=== PATIENT | female | born 1970 | race Two or more races ===

== ENCOUNTER → 2016-10-10 | Outpatient (CLI) | payer OTHER ==
[~2016-10-10] MED LIST: DICL75TA PO; MAPA500T13 PO
[2016-10-10 12:14] LABS: AUTOMATED NEUTROPHIL # 3.9 TH/MM3 (1.8-7.7); BASOPHIL % 0.4 % (0.0-2.0); EOSINOPHIL # 0.2 TH/MM3 (0-0.4); EOSINOPHIL % 2.2 % (0.0-4.0); HEMATOCRIT 36.6 % (35.0-46.0); HEMO FLAGS DIFF FINAL; LYMPH % 38.5 % (9.0-44.0); LYMPHOCYTE # 2.9 TH/MM3 (1.0-4.8); MEAN CELL VOLUME 85.3 FL (80.0-100.0); MEAN CORPUSCULAR HEMOGLOBIN 29.3 PG (27.0-34.0); MEAN CORPUSCULAR HGB CONC 34.3 % (32.0-36.0); MONO % 5.5 % (0.0-8.0); NEUT % 53.4 % (16.0-70.0); PLATELET COUNT 292 TH/MM3 (150-450); RED BLOOD COUNT 4.29 MIL/MM3 (4.00-5.30); RED CELL DISTRIBUTION WIDTH 12.3 % (11.6-17.2); WHITE BLOOD COUNT 7.4 TH/MM3 (4.0-11.0)
== END ==
LOC: PHPRE 11:24
PROVIDERS: ATTEND Orthopaedic Surgery
DX: Z01.812 Encounter for preprocedural laboratory examination (principal); S83.206A Unspecified tear of unspecified meniscus, current injury, right knee, initial encounter; X58.XXXA Exposure to other specified factors, initial encounter
CPT/HCPCS: 36415; 85025

== ENCOUNTER → 2016-10-24 | Day surgery (SDC) | payer OTHER ==
[~2016-10-24] VITALS: Ht 152.4 cm; Wt 76.5 kg
[~2016-10-24] MED LIST changes: +ACETAMINOPHEN/HYDROcodone 325 MG/5 MG TAB PO PRN; +BUPIVACAINE/EPINEPHRINE 0.25% PF 30 ML VIAL ONE; +CHLORHEXIDINE GLUCONATE 2 % 1 PACK (2 CLOTHS) TOPICAL PRN; +CHLORHEXIDINE GLUCONATE 4% SOLN 120 ML BTL TOPICAL SCH; +INSULIN HUMAN REGULAR 1,000 UNITS/10 ML VIAL SQ PRN; +KETOROLAC TROMETHAMINE 30 MG/ML (IVP) VIAL IM PRN; +KETOROLAC TROMETHAMINE 60 MG/2 ML (IM) VIAL IM ONE; +LACTATED RINGER'S 1000 ML IV PRN; +MEPERIDINE HCL 25 MG/ML VIAL ONE; +METOPROLOL TARTRATE 25 MG TAB PO PRN; +MIDAZOLAM HCL 2 MG/2 ML VIAL ONE; +ONDANSETRON HCL 4 MG/2 ML VIAL IV PUSH ONE; +ONDANSETRON HCL 4 MG/2 ML VIAL IV PUSH PRN; +POVIDONE IODINE 5% (ANTISEPSIS KIT) 4 APPLICATIONS EACH NARE PRN; +PROPOFOL 200 MG/20 ML AMP IV ONE; +SODIUM CHLORID 0.9% 500 ML IV PRN; +TRIAMCINOLONE ACETONIDE 40 MG/ML VIAL ONE
[2016-10-24 10:20] VITALS: BP 165/92; PULSE 63; RESP 18; TEMP 98; O2SAT 98
[2016-10-24 14:45] VITALS: BP 149/78; PULSE 68; RESP 16; TEMP 98.1; O2SAT 95
--- NOTE | 2016-10-24 21:30 | MP ---
cc: RACHEL NELSON MD DATE OF SURGERY 10/24/[address] Sharyn Nelson PREOPERATIVE DIAGNOSIS Pain right knee joint. POSTOPERATIVE DIAGNOSIS 1. Tear anterior horn lateral meniscus. 2. Chondromalacia patellofemoral joint. 3. Synovitis. PROCEDURE 1. Arthroscopic partial synovectomy. 2. Subtotal medial meniscectomy. 3. Chondroplasty patellofemoral joint. PROCEDURE IN DETAIL The patient was placed on the operating table in the supine position. Adequate general anesthesia was administered by the anesthesiologist. The patient's right knee was prepped and draped in the usual sterile fashion. A time-out was called and the patient's name, procedure and location were fully confirmed. An Esmarch bandage was used to exsanguinate the right lower extremity and a pneumatic tourniquet was inflated at the level of the proximal thigh to 300. An anterolateral portal was used for introduction of the cannula and the joint was distended with lactated Ringer's solution. A systematic examination of the knee joint revealed severe synovitis of the suprapatellar pouch extending to the patellofemoral joint and intercondylar fossa. The articular surface also showed grade one to two chondromalacia. The anterior cruciate ligament was frayed but intact. The medial compartment was unremarkable. The lateral compartment did show longitudinal tearing in the area of the anterior horn of the lateral meniscus. A resector was placed through an anteromedial portal and a partial synovectomy performed in all three compartments. A chondroplasty of the patella was also carried out with the same instrument. A subtotal lateral meniscectomy was performed also with the resector. Minimal chondroplasty was required for the articular surfaces of the lateral compartment. The medial compartment revealed some synovitis which was excised, but the medial meniscus was entirely intact. The instruments were removed after thorough irrigation and aspiration of the joint. The two stab wounds were closed with 3-0 nylon. An intra-articular injection of a total of 20 mL of 0.25% Marcaine with epinephrine and 1 mL of Kenalog was instilled through the lateral portal. Xeroform gauze was applied over both wounds and a bulky compression dressing applied around the knee joint. The tourniquet was deflated after 16 minutes. Sponge count, needle count and instrument counts were reported to be correct x2. The estimated blood loss was nil. The patient tolerated the procedure well and went to recovery room in satisfactory condition. MD ANAM Damon/ /12:29 PM /9:26 PM
== END | disposition home or self-care (01) ==
LOC: PHSDC 09:58
PROVIDERS: ATTEND Orthopaedic Surgery
DX: S83.281A Other tear of lateral meniscus, current injury, right knee, initial encounter (principal); M22.41 Chondromalacia patellae, right knee; M65.9 Synovitis and tenosynovitis, unspecified; W17.2XXA Fall into hole, initial encounter; Y93.89 Activity, other specified; Y92.69 Other specified industrial and construction area as the place of occurrence of the external cause; Y99.0 Civilian activity done for income or pay
CPT/HCPCS: 01400; 29876; 29881; E0113; J1885; J2175; J2250; J2405; J3010; J3301; J7120

== ENCOUNTER 2016-11-28 19:17 | Inpatient (IN) | payer OTHER ==
[~2016-11-28 19:17] MED LIST changes: -ACETAMINOPHEN/HYDROcodone 325 MG/5 MG TAB PO PRN; -BUPIVACAINE/EPINEPHRINE 0.25% PF 30 ML VIAL ONE; -CHLORHEXIDINE GLUCONATE 2 % 1 PACK (2 CLOTHS) TOPICAL PRN; -CHLORHEXIDINE GLUCONATE 4% SOLN 120 ML BTL TOPICAL SCH; -INSULIN HUMAN REGULAR 1,000 UNITS/10 ML VIAL SQ PRN; -KETOROLAC TROMETHAMINE 30 MG/ML (IVP) VIAL IM PRN; -KETOROLAC TROMETHAMINE 60 MG/2 ML (IM) VIAL IM ONE; -LACTATED RINGER'S 1000 ML IV PRN; -MAPA500T13 PO; -MEPERIDINE HCL 25 MG/ML VIAL ONE; -METOPROLOL TARTRATE 25 MG TAB PO PRN; -MIDAZOLAM HCL 2 MG/2 ML VIAL ONE; -ONDANSETRON HCL 4 MG/2 ML VIAL IV PUSH ONE; -ONDANSETRON HCL 4 MG/2 ML VIAL IV PUSH PRN; -POVIDONE IODINE 5% (ANTISEPSIS KIT) 4 APPLICATIONS EACH NARE PRN; -PROPOFOL 200 MG/20 ML AMP IV ONE; -SODIUM CHLORID 0.9% 500 ML IV PRN; -TRIAMCINOLONE ACETONIDE 40 MG/ML VIAL ONE
[2016-11-28 19:22] VITALS: BP 179/89; PULSE 75; RESP 18; TEMP 98; O2SAT 99
[2016-11-28] MEDS ORDERED: FURO1TAB60 PO (19:33)
[2016-11-28] MEDS ORDERED: SODIUM CHLORIDE 0.9% FLUSH 10 ML FLUSH IVF PRN (20:00)
[2016-11-28 20:07] LABS: BLOOD, URINE LARGE (NEG); GLUCOSE,URINE NEG (NEG); KETONE, URINE NEG (NEG); NITRITE,URINE NEG (NEG)
[2016-11-28 20:09] LABS: BASOPHIL % 0.5 % (0.0-2.0); EOSINOPHIL # 0.2 TH/MM3 (0-0.4); EOSINOPHIL % 2.7 % (0.0-4.0); HEMATOCRIT 35.3 % (35.0-46.0); HEMO FLAGS DIFF FINAL; LYMPH % 35.9 % (9.0-44.0); LYMPHOCYTE # 2.7 TH/MM3 (1.0-4.8); MEAN CORPUSCULAR HEMOGLOBIN 29.8 PG (27.0-34.0); MEAN CORPUSCULAR HGB CONC 34.7 % (32.0-36.0); NEUT % 53.9 % (16.0-70.0); PLATELET COUNT 268 TH/MM3 (150-450); RED CELL DISTRIBUTION WIDTH 12.8 % (11.6-17.2); WHITE BLOOD COUNT 7.4 TH/MM3 (4.0-11.0)
--- NOTE | 2016-11-28 20:09 | PD ---
HPI Chief Complaint: Abnormal Results Time Seen by Provider: 19:49 Travel History International Travel<30 days: No Contact w/Intl Traveler<30days: No Traveled to known affect area: No History of Present Illness HPI The patient is a 46-year-old female who had surgery by Dr. Henderson at this hospital on the of last month. The patient developed subsequent swelling in her right foot 3 days postop. She had a duplex scan of the right lower extremity with were consistent with extensive DVT from the area of the right groin down to below the knee. The patient is not short of breath now but has some slight chest pain on the left anterior chest below the left breast. She denies any fever or hemoptysis. She states there is no possibility of . The patient was not put on any anticoagulants, the surgery was an arthroscopy with meniscectomy. The patient states she has no contraindication to anticoagulants. She states this morning she had a tiny bit of blood in her stool but this cleared up. She has never had an intracranial bleed or stroke. She does not have a history of hypertension but her pressure is elevated here. PFSH Past Medical History Asthma: No Autoimmune Disease: No Cancer: No Cardiovascular Problems: No COPD: No Diabetes: No Endocrine: No Genitourinary: No Hepatitis: No Hiatal Hernia: No Immune Disorder: No Musculoskeletal: Yes (ARTHRITIS RIGHT KNEE AND TORN MENISCUS) Neurologic: No Psychiatric: No Reproductive: No Respiratory: No Thyroid Disease: No ?: Not Past Surgical History Abdominal Surgery: Yes (CHOLECYSTECTOMY) AICD: No Cardiac Surgery: No Ear Surgery: No Endocrine Surgery: No Eye Surgery: No Genitourinary Surgery: No Gynecologic Surgery: No Joint Replacement: No Oral Surgery: No Pacemaker: No Thoracic Surgery: No Other Surgery: Yes Social History Alcohol Use: No Tobacco Use: No Substance Use: No Allergies-Medications (Allergen,Severity, Reaction): Coded Allergies: No Known Allergies (Verified , 11/28/16) Reported Meds & Prescriptions Reported Meds & Active Scripts Active Reported Lasix (Furosemide) 40 Mg Tab 40 Mg PO DAILY Diclofenac Sodium DR (Diclofenac Sodium) 75 Mg Tabdr 75 Mg PO DAILY Review of Systems Except as stated in HPI: all other systems reviewed are Neg Physical Exam Narrative GENERAL: The patient is obese, alert, oriented 3 in no apparent distress. Specifically, she is in no respiratory distress. Her vital signs show blood pressure 179/89 but are otherwise normal. SKIN: Focused skin assessment warm/dry. HEAD: Atraumatic. Normocephalic. EYES: Pupils equal and round. No scleral icterus. No injection or drainage. ENT: No nasal bleeding or discharge. Mucous membranes pink and moist. NECK: Trachea midline. No JVD. CARDIOVASCULAR: Regular rate and rhythm. No murmur appreciated. RESPIRATORY: No accessory muscle use. Clear to auscultation. Breath sounds equal bilaterally. I can completely reproduce the patient's pain by pressing on the anterior chest wall just below the left breast where she perceives her pain. GASTROINTESTINAL: Abdomen soft, non-tender, nondistended. Hepatic and splenic margins not palpable. MUSCULOSKELETAL: No obvious deformities. No clubbing. No cyanosis. No edema. NEUROLOGICAL: Awake and alert. No obvious cranial nerve deficits. Motor grossly within normal limits. Normal speech. PSYCHIATRIC: Appropriate mood and affect; insight and judgment normal. Data Data Last Documented VS Vital Signs Date Time Temp Pulse Resp B/P Pulse Ox O2 Delivery O2 Flow Rate FiO2 11/28/16 20:25 85 16 177/82 99 Room Air 11/28/16 19:22 98.0 Orders Complete Blood Count With Diff (11/28/16 19:49) Comprehensive Metabolic Panel (11/28/16 19:49) Act Partial Throm Time (Ptt) (11/28/16 19:49) Prothrombin Time / Inr (Pt) (11/28/16 19:49) Urinalysis - C+S If Indicated (11/28/16 19:49) Iv Access Insert/Monitor (11/28/16 19:49) Ecg Monitoring (11/28/16 19:49) Oximetry (11/28/16 19:49) Oxygen Administration (11/28/16 19:49) Chest, Pa & Lat (11/28/16 19:49) Ct Pulmonary Angiogram (11/28/16 19:49) Sodium Chloride 0.9% Flush (Ns Flush) (11/28/16 20:00) Enalaprilat Inj (Vasotec Inj) (11/28/16 20:15) Urine Culture (11/28/16 20:00) Iohexol 350 Inj (Omnipaque 350 Inj) (11/28/16 20:37) Enoxaparin Inj (Lovenox Inj) (11/28/16 20:45) Enoxaparin Inj (Lovenox Inj) (11/29/16 09:00) Ceftriaxone Inj (Rocephin Inj) (11/28/16 21:00) Admit To Inpatient (11/28/16 ) Vital Signs (Adult) Q4H (11/28/16 20:51) Activity Bed Rest (11/28/16 20:51) Scoop Driver / Telemetry .CONTINUOUS (11/28/16 20:51) Intake + Output DAYRON.QSHIFT (11/28/16 20:51) Diet Regular Basic (11/29/16 Breakfast) Sodium Chloride 0.9% Flush (Ns Flush) (11/28/16 21:00) Sodium Chloride 0.9% Flush (Ns Flush) (11/28/16 21:00) Ondansetron Inj (Zofran Inj) (11/28/16 21:00) Comprehensive Metabolic Panel (11/29/16 06:00) Complete Blood Count With Diff (11/29/16 06:00) Troponin I (11/29/16 00:00) Troponin I (11/29/16 06:00) Acetaminophen (Tylenol) (11/28/16 21:00) Acetamin-Hydrocod 325-5 Mg (Aspen 5-325 (11/28/16 21:00) Morphine Inj (Morphine Inj) (11/28/16 21:00) Docusate Sodium-Senna (Azucena-Colace) (11/28/16 21:00) Magnesium Hydroxide Liq (Milk Of Magnesi (11/28/16 21:00) Sennosides (Senokot) (11/28/16 21:00) Bisacodyl Supp (Dulcolax Supp) (11/28/16 21:00) Lactulose Liq (Lactulose Liq) (11/28/16 21:00) Inpatient Certification (11/28/16 ) Labs Laboratory Tests Test 11/28/16 20:00 White Blood Count 7.4 TH/MM3 Red Blood Count 4.10 MIL/MM3 Hemoglobin 12.2 GM/DL Hematocrit 35.3 % Mean Corpuscular Volume 86.0 FL Mean Corpuscular Hemoglobin 29.8 PG Mean Corpuscular Hemoglobin 34.7 % Concent Red Cell Distribution Width 12.8 % Platelet Count 268 TH/MM3 Mean Platelet Volume 8.4 FL Neutrophils (%) (Auto) 53.9 % Lymphocytes (%) (Auto) 35.9 % Monocytes (%) (Auto) 7.0 % Eosinophils (%) (Auto) 2.7 % Basophils (%) (Auto) 0.5 % Neutrophils # (Auto) 4.0 TH/MM3 Lymphocytes # (Auto) 2.7 TH/MM3 Monocytes # (Auto) 0.5 TH/MM3 Eosinophils # (Auto) 0.2 TH/MM3 Basophils # (Auto) 0.0 TH/MM3 CBC Comment DIFF FINAL Differential Comment Prothrombin Time 10.6 SEC Prothromb Time International 1.0 RATIO Ratio Activated Partial 25.9 SEC Thromboplast Time Urine Color YELLOW Urine Turbidity CLEAR Urine pH 6.0 Urine Specific [place] 1.010 Urine Protein NEG mg/dL Urine Glucose (UA) NEG mg/dL Urine Ketones NEG mg/dL Urine Occult Blood LARGE Urine Nitrite NEG Urine Bilirubin NEG Urine Leukocyte Esterase TRACE Urine WBC 9-14 /hpf Urine WBC Clumps FEW Urine Squamous Epithelial 0-5 /hpf Cells Urine Bacteria FEW /hpf Urine Mucus FEW /lpf Microscopic Urinalysis Comment CULTURE INDICATED Sodium Level 139 MEQ/L Potassium Level 3.0 MEQ/L Chloride Level 104 MEQ/L Carbon Dioxide Level 27.6 MEQ/L Anion Gap 7 MEQ/L Blood Urea Nitrogen 14 MG/DL Creatinine 0.67 MG/DL Estimat Glomerular Filtration 95 ML/MIN Rate Random Glucose 122 MG/DL Calcium Level 8.2 MG/DL Total Bilirubin 0.2 MG/DL Aspartate Amino Transf 13 U/L (AST/SGOT) Alanine Aminotransferase 23 U/L (ALT/SGPT) Alkaline Phosphatase 111 U/L Total Protein 7.3 GM/DL Albumin 3.2 GM/DL [facility] Medical Decision Making Medical Screen Exam Complete: Yes Emergency Medical Condition: Yes Medical Record Reviewed: Yes Differential Diagnosis Deep vein thrombosis, ruptured popliteal cyst, cellulitis, pulmonary embolism Narrative Course The patient has deep vein thrombosis of the right leg. There is no clinical evidence at this time of pulmonary embolism or cellulitis. Physician Communication Physician Communication I discussed the patient with Dr. King, the patient will be admitted to her. Diagnosis Primary Impression: Deep vein thrombosis of right lower extremity Admitting Information Admitting Physician Requests: Admit Rene Rodriguez MD Nov 28, 2016 20:09
[2016-11-28 20:10] LABS: URINE COLOR YELLOW (YELLW/STRAW)
[2016-11-28 20:11] LABS: MUCUS URINE FEW /lpf (OCC)
[2016-11-28 20:12] LABS: BACTERIA, URINE FEW /hpf; COMMENT (UR) CULTURE INDICATED; CULTURE IF INDICATED CULTURE INDICATED; SQUAMOUS EPITHELIAL CELL URINE 0-5 /hpf (0-5)
[2016-11-28 20:14] LABS: CHLORIDE 104 MEQ/L (98-107); SODIUM (NA) 139 MEQ/L (136-145)
[2016-11-28] MEDS ORDERED: ENALAPRILAT 2.5 MG/2 ML VIAL IV PUSH ONE (20:15)
[2016-11-28 20:17] LABS: ANION GAP 7 MEQ/L (5-15); BICARBONATE 27.6 MEQ/L (21.0-32.0)
[2016-11-28 20:18] LABS: BLOOD UREA NITROGEN 14 MG/DL (7-18)
--- NOTE | 2016-11-28 20:19 | RADRPT ---
EXAM DATE/TIME: 11/28/2016 19:54 [facility] COMPARISON: No previous studies available for comparison. INDICATIONS : Chest pain. MEDICAL HISTORY : None. SURGICAL HISTORY : Right knee surgery ENCOUNTER: Initial ACUITY: 1 day PAIN SCORE: 6/10 LOCATION: Bilateral chest FINDINGS: PA and lateral views of the chest demonstrate the lungs to be symmetrically aerated without evidence of mass, infiltrate or effusion. The cardiomediastinal contours are unremarkable. Osseous structure s are intact. CONCLUSION: No evidence of acute cardiopulmonary disease. Surya Moss MD on November 28, 2016 at 20:17 Board Certified Radiologist. This report was verified electronically.
[2016-11-28 20:20] LABS: APTT (PATIENT) 25.9 SEC (24.3-30.1); PROTHROMBIN TIME - PATIENT 10.6 SEC (9.8-11.6)
[2016-11-28 20:21] LABS: ALT (GPT) 23 U/L (10-53); AST (GOT) 13 U/L (15-37); GLOMERULAR FILTRATION RATE 95 ML/MIN (>89)
[2016-11-28 20:22] LABS: TOTAL BILIRUBIN ADULT 0.2 MG/DL (0.2-1.0)
[2016-11-28 20:24] LABS: ALKALINE PHOSPHATASE 111 U/L (45-117)
[2016-11-28 20:25] VITALS: BP 177/82; PULSE 85; RESP 16; O2SAT 99
[2016-11-28] MEDS ORDERED: IOHEXOL 350 MG/ML 10 ML VIAL (for RAD DIAG) IV ONE (20:37)
[2016-11-28] MEDS ORDERED: ENOXAPARIN SODIUM 80 MG/0.8 ML SYRINGE SQ ONE (20:45)
[2016-11-28] MEDS ORDERED: SENNOSIDES 8.6 MG TAB PO PRN (21:00)
[2016-11-28] MEDS ORDERED: MAGNESIUM HYDROXIDE SUSP 30 ML CUP PO PRN (21:00)
[2016-11-28] MEDS ORDERED: ACETAMINOPHEN/HYDROcodone 325 MG/5 MG TAB PO PRN (21:00)
[2016-11-28] MEDS ORDERED: ONDANSETRON HCL 4 MG/2 ML VIAL IVP PRN (21:00)
[2016-11-28] MEDS ORDERED: MORPHINE SULFATE 4 MG/ML INJ IV PRN (21:00)
[2016-11-28] MEDS ORDERED: BISACODYL 10 MG SUPP RECTAL PRN (21:00)
[2016-11-28] MEDS ORDERED: SODIUM CHLORIDE 0.9% FLUSH 10 ML FLUSH IV FLUSH PRN (21:00)
[2016-11-28] MEDS ORDERED: LACTULOSE SYRUP 20 GM/30 ML CUP PO PRN (21:00)
[2016-11-28] MEDS ORDERED: ACETAMINOPHEN 325 MG TAB PO PRN (21:00)
[2016-11-28 21:05] VITALS: BP 184/82; PULSE 73; RESP 16; O2SAT 100
[2016-11-28] MEDS ORDERED: cefTRIAXone INJ 1,000 MG in SODIUM CHLORIDE 0.9% INJ 100 ML IV ONE (21:15)
--- NOTE | 2016-11-28 21:23 | RADRPT ---
EXAM DATE/TIME: 11/28/2016 20:47 [facility] COMPARISON: No previous studies available for comparison. INDICATIONS : DVT seen on doppler today of Right leg. Status post knee surgery 10/2016 IV CONTRAST: 75 cc Omnipaque 350 (iohexol) IV RADIATION DOSE: 19.30 CTDIvol (mGy) MEDICAL HISTORY : Deep venous thrombosis. SURGICAL HISTORY : Cholecystectomy. Right knee ENCOUNTER: Initial ACUITY: 1 month PAIN SCALE: 4/10 LOCATION: Left chest TECHNIQUE: Volumetric scanning of the chest was performed using a pulmonary embolism protocol MIP images were re constructed. Using automated exposure control and adjustment of the mA and/or kV according to patien t size, radiation dose was kept as low as reasonably achievable to obtain optimal diagnostic quality images. DICOM format image data is available electronically for review and comparison. Follow-up recommendations for detected pulmonary nodules are based at a minimum on nodule size and pa tient risk factors according to Fleischner Society Guidelines. FINDINGS: PULMONARY ARTERIES: No filling defects are seen in the pulmonary arteries through the segmental level. LUNGS: There is no consolidation or pneumothorax . No concerning pulmonary nodule is visualized. PLEURAE: There is no pleural thickening or pleural effusion. MEDIASTINUM: There is good visualization of the great vessels of the middle mediastinum. No evidence of mediastin al or hilar adenopathy/mass. MUSCULOSKELETAL: Within normal limits for patient age. MISCELLANEOUS: The visualized upper abdominal organs demonstrate no acute abnormality. CONCLUSION: No pulmonary embolus or other acute cardiopulmonary disease. Surya Moss MD on November 28, 2016 at 21:21 Board Certified Radiologist. This report was verified electronically.
[2016-11-28 21:27] VITALS: BP 152/72; PULSE 78; RESP 16; O2SAT 98
[2016-11-28] MEDS ORDERED: POTASSIUM CHLORIDE 20 MEQ CONTROLLED RELEASE TAB PO ONE (21:45)
[2016-11-28] MEDS: DOCUSATE SODIUM 50 MG/SENNA 8.6 MG TAB PO SCH (21:58)
[2016-11-28] MEDS: SODIUM CHLORIDE 0.9% FLUSH 10 ML FLUSH IV FLUSH SCH (21:58)
[2016-11-28] MEDS ORDERED: cefTRIAXone INJ 1,000 MG in SODIUM CHLORIDE 0.9% INJ 100 ML IV SCH (22:00)
[2016-11-29] VITALS: PULSE 70
[2016-11-29 01:49] VITALS: BP 155/90; PULSE 65; RESP 16; TEMP 96.6; O2SAT 94
[2016-11-29 04:42] VITALS: BP 141/80; PULSE 70; RESP 18; TEMP 97; O2SAT 96
[2016-11-29 07:06] LABS: AUTOMATED NEUTROPHIL # 3.5 TH/MM3 (1.8-7.7); BASOPHIL % 0.4 % (0.0-2.0); EOSINOPHIL # 0.2 TH/MM3 (0-0.4); HEMATOCRIT 33.9 % (35.0-46.0); HEMO FLAGS DIFF FINAL; LYMPH % 43.4 % (9.0-44.0); LYMPHOCYTE # 3.2 TH/MM3 (1.0-4.8); MEAN CELL VOLUME 86.7 FL (80.0-100.0); MEAN CORPUSCULAR HEMOGLOBIN 29.6 PG (27.0-34.0); MEAN CORPUSCULAR HGB CONC 34.1 % (32.0-36.0); MONO % 7.2 % (0.0-8.0); PLATELET COUNT 275 TH/MM3 (150-450); RED BLOOD COUNT 3.91 MIL/MM3 (4.00-5.30); RED CELL DISTRIBUTION WIDTH 12.8 % (11.6-17.2); WHITE BLOOD COUNT 7.4 TH/MM3 (4.0-11.0)
[2016-11-29 07:21] LABS: CHLORIDE 106 MEQ/L (98-107); POTASSIUM 3.5 MEQ/L (3.5-5.1); SODIUM (NA) 140 MEQ/L (136-145)
[2016-11-29 07:25] LABS: ANION GAP 9 MEQ/L (5-15); BICARBONATE 25.3 MEQ/L (21.0-32.0); BLOOD UREA NITROGEN 12 MG/DL (7-18)
[2016-11-29 07:28] LABS: ALT (GPT) 18 U/L (10-53); AST (GOT) 12 U/L (15-37); GLOMERULAR FILTRATION RATE 122 ML/MIN (>89)
[2016-11-29 07:29] LABS: TOTAL BILIRUBIN ADULT 0.4 MG/DL (0.2-1.0)
[2016-11-29 07:30] LABS: ALKALINE PHOSPHATASE 97 U/L (45-117)
[2016-11-29 08:00] VITALS: BP 133/76; PULSE 68; PULSE 69; RESP 17; TEMP 97.6; O2SAT 98
[2016-11-29] MEDS ORDERED: ENOXAPARIN SODIUM 80 MG/0.8 ML SYRINGE SQ SCH (09:00)
[2016-11-29] MEDS: DOCUSATE SODIUM 50 MG/SENNA 8.6 MG TAB PO SCH (09:29)
[2016-11-29] MEDS: SODIUM CHLORIDE 0.9% FLUSH 10 ML FLUSH IV FLUSH SCH (09:30)
--- NOTE | 2016-11-29 10:32 | HHI.HP ---
[facility] No Primary Care Physician Admission Diagnosis deep vein thrombosis right lower extremity Diagnoses: (1) Deep vein thrombosis of right lower extremity Diagnosis: Principal Chief Complaint: Patient sent here because of abnormal outpatient ultrasound. Travel History International Travel<30 Days: No Contact w/Intl Traveler <30 Da: No Traveled to Known Affected Are: No History of Present Illness Written by Seamus Rodriguez, acting as scribe for Dr. Brar on 11/29/16 at 10 :21. 46-year-old female with no significant chronic medical illnesses who presented to the hospital at the request of her primary medical doctor because of right lower extremity DVT. Patient did undergo right knee surgery by Dr. Henderson on 10/24/16 in which he performed an arthroscopic partial synovectomy, total medial meniscectomy and chondroplasty patellofemoral joint. Patient was doing well until she started developing swelling in her right lower extremity with pain. The patient went to her primary medical doctor's office on November 20 , notify them of her symptoms and she had an ultrasound scheduled which was performed yesterday and indicated extensive DVT from inguinal area down to past popliteal area. Physician recommended patient come to the hospital for evaluation. Patient came to [facility] at the request of her physician and results of the ultrasound is on the chart. Patient denies any previous clotting /bleeding issues. There was indication that she did have some scant red coloration to her stool yesterday. She denies any hemorrhoids or any other bleeding abnormalities. Patient also stated that she had some mild tenderness noted in the anterior chest under left breast between 5:30 and 6:00 yesterday afternoon that right 2/10 on a pain scale that is palpable on palpation of the mid sternum. Is recommended by the ER physician that the patient be admitted for anticoagulation. Review of Systems Cardiovascular: COMPLAINS OF: Chest pain Gastrointestinal: COMPLAINS OF: Bloody stools Musculoskeletal: COMPLAINS OF: Joint Swelling Except as stated in HPI: all other systems reviewed are Neg Past Family Social History Past Medical History Arthritis of the right knee Past Surgical History Right knee surgery Cholecystectomy Reported Medications Last Impressions Chest X-Ray 11/28/161948 Signed Impressions: Service Date/Time: Monday, November 28, 2016 19:54 - CONCLUSION: No evidence of acute cardiopulmonary disease. Surya Moss MD CT Angiography 11/28/161948 Signed Impressions: Service Date/Time: Monday, November 28, 2016 20:47 - CONCLUSION: No pulmonary embolus or other acute cardiopulmonary disease. Surya Moss MD Allergies: Coded Allergies: No Known Allergies (Verified , 11/28/16) Family History Mother at age 45 from tuberculosis, father alive at 75 in good health Social History Patient denies any tobacco, alcohol or illicit drugs Physical Exam Vital Signs Vital Signs Date Time Temp Pulse Resp B/P Pulse Ox O2 Delivery O2 Flow Rate FiO2 11/29/16 08:00 97.6 69 17 133/76 98 11/29/16 04:42 97.0 70 18 141/80 96 11/29/16 01:49 96.6 65 16 155/90 94 11/29/16 00:00 70 11/28/16 21:27 78 16 152/72 98 Room Air 11/28/16 21:05 73 16 184/82 100 Room Air 11/28/16 20:25 85 16 177/82 99 Room Air 11/28/16 19:22 98.0 75 18 179/89 99 Physical Exam GENERAL: Well-developed, well-nourished, in no acute distress. alert and orientated HEENT: Head is normocephalic without any lesions or masses noted. Facial features are symmetric. Eyes: Pupils equal round reactive to light. Extraocular muscles are intact. Conjunctivae were clear. Oropharyngeal: Pharynx without any erythema edema. Tongue is midline without deviation. Buccal mucosa is moist without any masses or lesions NECK: Supple without any masses. Trachea midline no deviation. No JVD, no bruits are appreciated CARDIAC: Regular rhythm, regular rate. S1/S2 are heard. No murmurs gallops or rubs. Patient does have reproducible palpable tenderness noted along the sternum LUNGS: Clear to auscultation bilaterally. No wheeze, rhonchi or rales. No use of accessory muscles on inspiration or expiration. ABDOMEN: Soft, nontender. Nondistended. Bowel sounds heard in all 4 quadrants. No organomegaly or masses. Negative rebound, negative guarding EXTREMITIES: No edema, pulses are equal bilaterally. No cyanosis or clubbing. Right be some mild edema noted to the patient's right lower extremity. There is still small ecchymosis noted at the site of surgery NEUROLOGY: Mood and affect appear appropriate. Cranial nerves II through XII grossly intact. Muscle strength 5/5 in upper and lower extremities bilaterally. Deep tendon reflexes are 2+ in upper and lower extremities bilaterally. Laboratory Laboratory Tests Test 11/28/16 11/29/16 11/29/16 20:00 00:55 05:40 White Blood Count 7.4 7.4 Red Blood Count 4.10 3.91 Hemoglobin 12.2 11.6 Hematocrit 35.3 33.9 Mean Corpuscular Volume 86.0 86.7 Mean Corpuscular Hemoglobin 29.8 29.6 Mean Corpuscular Hemoglobin 34.7 34.1 Concent Red Cell Distribution Width 12.8 12.8 Platelet Count 268 275 Mean Platelet Volume 8.4 8.8 Neutrophils (%) (Auto) 53.9 46.0 Lymphocytes (%) (Auto) 35.9 43.4 Monocytes (%) (Auto) 7.0 7.2 Eosinophils (%) (Auto) 2.7 3.0 Basophils (%) (Auto) 0.5 0.4 Neutrophils # (Auto) 4.0 3.5 Lymphocytes # (Auto) 2.7 3.2 Monocytes # (Auto) 0.5 0.5 Eosinophils # (Auto) 0.2 0.2 Basophils # (Auto) 0.0 0.0 CBC Comment DIFF FINAL DIFF FINAL Differential Comment Prothrombin Time 10.6 Prothromb Time International 1.0 Ratio Activated Partial 25.9 Thromboplast Time Urine Color YELLOW Urine Turbidity CLEAR Urine pH 6.0 Urine Specific [place] 1.010 Urine Protein NEG Urine Glucose (UA) NEG Urine Ketones NEG Urine Occult Blood LARGE Urine Nitrite NEG Urine Bilirubin NEG Urine Leukocyte Esterase TRACE Urine WBC 9-14 Urine WBC Clumps FEW Urine Squamous Epithelial 0-5 Cells Urine Bacteria FEW Urine Mucus FEW Microscopic Urinalysis Comment CULTURE INDICATED Sodium Level 139 140 Potassium Level 3.0 3.5 Chloride Level 104 106 Carbon Dioxide Level 27.6 25.3 Anion Gap 7 9 Blood Urea Nitrogen 14 12 Creatinine 0.67 0.54 Estimat Glomerular Filtration 95 122 Rate Random Glucose 122 84 Calcium Level 8.2 8.3 Total Bilirubin 0.2 0.4 Aspartate Amino Transf 13 12 (AST/SGOT) Alanine Aminotransferase 23 18 (ALT/SGPT) Alkaline Phosphatase 111 97 Total Protein 7.3 6.6 Albumin 3.2 2.9 Troponin I LESS THAN 0.02 LESS THAN 0.02 Date/Time Procedure Status Source Growth 11/28/16 20:00 Urine Culture Received Urine Clean Catch Pending Result Diagram: 11/29/16 0540 11/29/16 0540 Imaging Last Impressions Chest X-Ray 11/28/161948 Signed Impressions: Service Date/Time: Monday, November 28, 2016 19:54 - CONCLUSION: No evidence of acute cardiopulmonary disease. Surya Moss MD CT Angiography 11/28/161948 Signed Impressions: Service Date/Time: Monday, November 28, 2016 20:47 - CONCLUSION: No pulmonary embolus or other acute cardiopulmonary disease. Surya Moss MD Assessment and Plan Assessment and Plan Right lower extremity DVT by outside radiology facility Patient was at risk due to recent orthopedic surgery Patient started on Lovenox 80 mg every 12 hours We'll change the patient to Xarelto, consult case management for coupon Patient was counseled extensively on anticoagulation use. If she starts having any bleeding, falls and hits her head to return immediately to the emergency room Mild bacturia Possible contamination with increased squamous cells Patient started on empiric Rocephin Await urine culture for continued antibiotic treatment Questionable hematochezia Patient does not know if the blood actually came from her stool or her vagina No Hemoccult was performed at this time Hemoglobin has remained stable Patient was counseled extensively on possible etiologies of the right coloration to her stool. Patient was offered gastrointestinal workup while here the hospital, patient is deferring gastroenterology workup at this time. Patient was instructed to follow-up in outpatient setting. Chest pain, atypical Reproducible on palpation could be muscle skeletal secondary to her using a walker since her surgery Cardiac enzymes were unremarkable DVT prevention Patient is on Lovenox Discharge disposition Discharge home in stable condition after case therapist provides patient with Xarelto coupon Activity: Ad anel. Diet: Regular diet Medications per medication reconciliation Follow-up primary medical doctor in one week This note was transcribed by tiffani Rodriguez. I, Dr. Ana Paula Brar personally performed the history, physical exam, and medical decision making; and confirmed the accuracy of the information in the transcribed note, and made amendments where indicated. Authenticated by Dr. Ana Paula Brar on 11/29/16 at 10:35. Physician Certification 2 Midnight Certification Type: Admission for Inpatient Services Order for Inpatient Services The services are ordered in accordance with Medicare regulations or non- Medicare payer requirements, as applicable. In the case of services not specified as inpatient-only, they are appropriately provided as inpatient services in accordance with the 2-midnight benchmark. Estimated LOS (days): 1 days is the estimated time the patient will need to remain in the hospital, assuming treatment plan goals are met and no additional complications. Post-Hospital Plan: Home Problem Qualifiers (1) Deep vein thrombosis of right lower extremity: Seamus Rodriguez Nov 29, 2016 10:32 Ana Paula Brar MD Nov 29, 2016 10:36
[2016-11-29 12:00] VITALS: BP 128/70; PULSE 72; RESP 18; TEMP 97.4; O2SAT 96
[2016-11-29 12:02] LABS: HEMATOCRIT 34.1 % (35.0-46.0); REVIEW FLAG FINAL
[2016-11-29] MEDS ORDERED: XARE20TA PO (12:23)
== END 2016-11-29 13:25 | disposition home or self-care (01) | DRG 301 ==
LOC: PHED 19:17 → PHEDA 21:17 → PH3A 23:15
PROVIDERS: ADMIT Family Medicine; ATTEND Family Medicine
DX: I82.401 Acute embolism and thrombosis of unspecified deep veins of right lower extremity (principal); R07.89 Other chest pain; R82.71 Bacteriuria; R30.0 Dysuria
CPT/HCPCS: 71020; 71275; 80053; 81001; 84484; 85014; 85018; 85025; 85610; 85730; 87086; 96372; 96374; J0696; J1650; Q9967

== ENCOUNTER 2016-12-07 15:57 | Emergency (ER) | payer MEDICAID, OTHER ==
[~2016-12-07] VITALS: Ht 154.9 cm; Wt 83.0 kg
[~2016-12-07 15:57] MED LIST changes: +XARE20TA PO
[2016-12-07 16:00] VITALS: BP 164/97; PULSE 91; RESP 16; TEMP 98.3; O2SAT 96
[2016-12-07] MEDS ORDERED: SODIUM CHLORIDE 0.9% FLUSH 10 ML FLUSH IV FLUSH PRN (16:30)
--- NOTE | 2016-12-07 16:33 | PD ---
HPI Chief Complaint: [employer] Problem/Complaint Time Seen by Provider: 16:22 Travel History International Travel<30 days: No Contact w/Intl Traveler<30days: No Traveled to known affect area: No History of Present Illness HPI 46-year-old female with history of right knee arthroscopy on 10/24/16, diagnosed with a DVT on 11/28/16, started on Xarelto, here for evaluation of heavy vaginal bleeding for the last week, worse today. Patient reports that she went through 3 pads today. She does feel a little lightheaded. No syncopal episodes. She does have some suprapubic cramping. PFSH Past Medical History Asthma: No Autoimmune Disease: No Cancer: No Cardiovascular Problems: No COPD: No Diabetes: No Endocrine: No Genitourinary: No Hepatitis: No Hiatal Hernia: No Immune Disorder: No Medical other: Yes (Blood clot post surgery ) Musculoskeletal: Yes (ARTHRITIS RIGHT KNEE AND TORN MENISCUS) Neurologic: No Psychiatric: No Reproductive: No Respiratory: No Thyroid Disease: No Tetanus Vaccination: > 5 Years Influenza Vaccination: No ?: Unknown LMP: now, bleeding for seven days Past Surgical History Abdominal Surgery: Yes (CHOLECYSTECTOMY) AICD: No Cardiac Surgery: No Ear Surgery: No Endocrine Surgery: No Eye Surgery: No Genitourinary Surgery: No Gynecologic Surgery: No Joint Replacement: No Oral Surgery: No Pacemaker: No Thoracic Surgery: No Other Surgery: Yes Social History Alcohol Use: No Tobacco Use: No Substance Use: No Allergies-Medications (Allergen,Severity, Reaction): Coded Allergies: No Known Allergies (Verified , 12/07/16) Reported Meds & Prescriptions Reported Meds & Active Scripts Active Xarelto (Rivaroxaban) 20 Mg Tab 20 Mg PO DAILY Reported Diclofenac Sodium DR (Diclofenac Sodium) 75 Mg Tabdr 75 Mg PO DAILY Review of Systems Except as stated in HPI: all other systems reviewed are Neg Physical Exam Narrative GENERAL: Well-developed, well-nourished, comfortable, no apparent distress. SKIN: Focused skin assessment warm/dry. No pallor. HEAD: Atraumatic. Normocephalic. EYES: Pupils equal and round. No conjunctival pallor. No scleral icterus. No injection or drainage. ENT: Mucous membranes pink and moist. NECK: Trachea midline. No JVD. CARDIOVASCULAR: Regular rate and rhythm. RESPIRATORY: No accessory muscle use. Clear to auscultation. Breath sounds equal bilaterally. GASTROINTESTINAL: Abdomen soft, nondistended. Mild suprapubic tenderness. WASHER MACHINE: Exam performed in the presence of a female nurse. Normal external genitalia. Moderate amount of blood in vaginal vault coming from cervical os. Blood is able to be cleared with swabs. IUD strings are visible. No obvious masses or intravaginal or surgical lacerations. MUSCULOSKELETAL: No obvious deformities. No clubbing. No cyanosis. Moderate edema to left leg from foot to knee with mild tenderness. NEUROLOGICAL: Awake and alert. No obvious cranial nerve deficits. Motor grossly within normal limits. Normal speech. PSYCHIATRIC: Appropriate mood and affect; insight and judgment normal. Data Data Last Documented VS Vital Signs Date Time Temp Pulse Resp B/P (MAP) Pulse Ox O2 Delivery O2 Flow Rate FiO2 12/07/16 17:37 78 20 150/72 (98) 97 Room Air 12/07/16 16:00 98.3 Orders Orders Basic Metabolic Panel (Bmp) (12/07/16 16:30) Complete Blood Count With Diff (12/07/16 16:30) Prothrombin Time / Inr (Pt) (12/07/16 16:30) Act Partial Throm Time (Ptt) (12/07/16 16:30) Iv Access Insert/Monitor (12/07/16 16:30) Ecg Monitoring (12/07/16 16:30) Oximetry (12/07/16 16:30) Sodium Chloride 0.9% Flush (Ns Flush) (12/07/16 16:30) Acetaminophen (Tylenol) (12/07/16 17:00) Type And Screen (12/07/16 16:49) Labs Laboratory Tests Test 12/07/16 16:45 White Blood Count 7.6 TH/MM3 Red Blood Count 4.10 MIL/MM3 Hemoglobin 12.1 GM/DL Hematocrit 35.9 % Mean Corpuscular Volume 87.5 FL Mean Corpuscular Hemoglobin 29.5 PG Mean Corpuscular Hemoglobin Concent 33.7 % Red Cell Distribution Width 13.1 % Platelet Count 291 TH/MM3 Mean Platelet Volume 8.5 FL Neutrophils (%) (Auto) 58.5 % Lymphocytes (%) (Auto) 33.2 % Monocytes (%) (Auto) 5.9 % Eosinophils (%) (Auto) 2.0 % Basophils (%) (Auto) 0.4 % Neutrophils # (Auto) 4.5 TH/MM3 Lymphocytes # (Auto) 2.5 TH/MM3 Monocytes # (Auto) 0.4 TH/MM3 Eosinophils # (Auto) 0.2 TH/MM3 Basophils # (Auto) 0.0 TH/MM3 CBC Comment DIFF FINAL Differential Comment Prothrombin Time 10.8 SEC Prothromb Time International Ratio 1.0 RATIO Activated Partial Thromboplast Time 26.8 SEC Blood Urea Nitrogen 13 MG/DL Creatinine 0.79 MG/DL Random Glucose 124 MG/DL Calcium Level 8.2 MG/DL Sodium Level 141 MEQ/L Potassium Level 3.4 MEQ/L Chloride Level 104 MEQ/L Carbon Dioxide Level 27.8 MEQ/L Anion Gap 9 MEQ/L Estimat Glomerular Filtration Rate 79 ML/MIN [facility] Medical Decision Making Medical Screen Exam Complete: Yes Emergency Medical Condition: Yes Differential Diagnosis Vaginal bleeding, medication induced coagulopathy, anemia Narrative Course Vital signs show heart rate 78, blood pressure 150/72, pulse ox 97% on room air , oral temp of 98.3F. CBC shows a hemoglobin of 12.1, hematocrit 35.9 Patient has a moderate amount of blood in the vaginal vault coming from cervical os. I was able to clear this blood. There are no obvious cervical lacerations or masses. No intravaginal lacerations. Case discussed with on- call OB hospitalist Dr. Dee. Patient has an IUD. He recommends starting the patient on Provera 10 mg twice a day and having her follow-up with her WASHER MACHINE physician this week. Patient will continue taking her Xarelto. Both the patient and the patient's son were made aware of this plan. They were informed on when to return to the emergency department. They verbalized understanding and agreement with plan. Diagnosis Primary Impression: Menorrhagia Qualified Codes: N92.1 - Excessive and frequent menstruation with irregular cycle Referrals: Regional Service Manager 3 days Primary Care Physician 3 days Additional Instructions: Follow-up with your human resources hr generalist this week. Take Provera twice daily until bleeding stops. Continue taking Xarelto. Return to the emergency department for worsening symptoms or any other concerns as discussed. Scripts Medroxyprogesterone Acetate (Provera) 10 Mg Tab 10 MG PO BID for Uterine bleeding for 10 Days, TAB 0 Refills Start day 16 Prov: Brian Quinonez MD 12/07/16 Disposition: 01 DISCHARGE HOME Condition: Brian Turner MD Dec 07, 2016 16:33
[2016-12-07] MEDS ORDERED: ACETAMINOPHEN 325 MG TAB PO ONE (17:00)
[2016-12-07 17:04] LABS: AUTOMATED NEUTROPHIL # 4.5 TH/MM3 (1.8-7.7); BASOPHIL % 0.4 % (0.0-2.0); EOSINOPHIL # 0.2 TH/MM3 (0-0.4); HEMATOCRIT 35.9 % (35.0-46.0); HEMO FLAGS DIFF FINAL; LYMPH % 33.2 % (9.0-44.0); LYMPHOCYTE # 2.5 TH/MM3 (1.0-4.8); MEAN CELL VOLUME 87.5 FL (80.0-100.0); MEAN CORPUSCULAR HEMOGLOBIN 29.5 PG (27.0-34.0); MEAN CORPUSCULAR HGB CONC 33.7 % (32.0-36.0); MONO % 5.9 % (0.0-8.0); NEUT % 58.5 % (16.0-70.0); PLATELET COUNT 291 TH/MM3 (150-450); RED CELL DISTRIBUTION WIDTH 13.1 % (11.6-17.2); WHITE BLOOD COUNT 7.6 TH/MM3 (4.0-11.0)
[2016-12-07 17:11] LABS: POTASSIUM 3.4 MEQ/L (3.5-5.1)
[2016-12-07 17:13] LABS: BICARBONATE 27.8 MEQ/L (21.0-32.0)
[2016-12-07 17:18] LABS: APTT (PATIENT) 26.8 SEC (24.3-30.1); PROTHROMBIN TIME - PATIENT 10.8 SEC (9.8-11.6)
[2016-12-07 17:37] VITALS: BP 150/72; PULSE 78; RESP 20; O2SAT 78; O2SAT 97
[2016-12-07] MEDS ORDERED: PROV10TA PO (18:14)
[2016-12-07] MEDS ORDERED: medroxyPROGESTERone ACETATE 10 MG TAB PO ONE (18:15)
== END 2016-12-07 18:31 | disposition home or self-care (01) ==
LOC: PHED 15:57
DX: N92.0 Excessive and frequent menstruation with regular cycle (principal); Z86.718 Personal history of other venous thrombosis and embolism; Z79.01 Long term (current) use of anticoagulants
CPT/HCPCS: 80048; 85025; 85610; 85730; 86850; 86900; 86901; 99284

== ENCOUNTER 2017-01-11 20:04 | Inpatient (IN) | payer MEDICAID ==
[~2017-01-11] VITALS: Ht 152.4 cm; Wt 82.3 kg
[~2017-01-11 20:04] MED LIST changes: +PROV10TA PO
[2017-01-11 20:17] VITALS: BP 171/78; PULSE 92; RESP 17; TEMP 98.1; O2SAT 98
--- NOTE | 2017-01-11 20:45 | PD ---
HPI Chief Complaint: Edema Time Seen by Provider: 20:38 Travel History International Travel<30 days: No Contact w/Intl Traveler<30days: No Traveled to known affect area: No History of Present Illness HPI The patient is a 46-year-old female that has the vein thrombosis in the right lower extremity. She was here on 28 November and had a positive ultrasound at that time. She was admitted to the hospital, CT chest was done that showed no pulmonary embolus and she was sent home on Xarelto. She did well for 2 days but then the swelling and pain began again and has been getting worse since. She denies any hemoptysis, fever, tachycardia, syncopal or near syncopal spells , chest pain or shortness of breath. Although she lives in [facility] and has a primary care physician there she did not contact her primary care physician and comes here for treatment. She has been somewhat inactive on that leg because she has a cartilage problem with her right knee. She states she has been taking her medications correctly and has been elevating her leg. PFSH Past Medical History Hx Anticoagulant Therapy: Yes Asthma: No Autoimmune Disease: No Cancer: No Cardiovascular Problems: No COPD: No Diabetes: No Endocrine: No Genitourinary: No Hepatitis: No Hiatal Hernia: No Immune Disorder: No Musculoskeletal: Yes (ARTHRITIS RIGHT KNEE AND TORN MENISCUS) Neurologic: No Psychiatric: No Reproductive: No Respiratory: No Thyroid Disease: No Past Surgical History Abdominal Surgery: Yes (CHOLECYSTECTOMY) AICD: No Cardiac Surgery: No Ear Surgery: No Endocrine Surgery: No Eye Surgery: No Genitourinary Surgery: No Gynecologic Surgery: No Joint Replacement: No Oral Surgery: No Pacemaker: No Thoracic Surgery: No Other Surgery: Yes Social History Alcohol Use: No Tobacco Use: No Substance Use: No Allergies-Medications (Allergen,Severity, Reaction): Coded Allergies: No Known Allergies (Verified , 01/11/17) Reported Meds & Prescriptions Reported Meds & Active Scripts Active Xarelto (Rivaroxaban) 20 Mg Tab 20 Mg PO DAILY Review of Systems Except as stated in HPI: all other systems reviewed are Neg Physical Exam Narrative GENERAL: The patient is alert, oriented 3, obese and answers questions quickly and appropriately. Her blood pressure is 171/78 but the rest of her vital signs are normal. SKIN: Focused skin assessment warm/dry. HEAD: Atraumatic. Normocephalic. EYES: Pupils equal and round. No scleral icterus. No injection or drainage. ENT: No nasal bleeding or discharge. Mucous membranes pink and moist. NECK: Trachea midline. No JVD. CARDIOVASCULAR: Regular rate and rhythm. No murmur appreciated. RESPIRATORY: No accessory muscle use. Clear to auscultation. Breath sounds equal bilaterally. GASTROINTESTINAL: Abdomen soft, non-tender, nondistended. Hepatic and splenic margins not palpable. MUSCULOSKELETAL: No obvious deformities. No clubbing. No cyanosis. The right leg shows edema, tenderness along the deep veins all the way to the groin and shows swelling in her right foot as well. The right leg is grossly larger than the left leg he comes of the swelling. Homans sign is positive.. NEUROLOGICAL: Awake and alert. No obvious cranial nerve deficits. Motor grossly within normal limits. Normal speech. PSYCHIATRIC: Appropriate mood and affect; insight and judgment normal. Data Data Last Documented VS Vital Signs Date Time Temp Pulse Resp B/P (MAP) Pulse Ox O2 Delivery O2 Flow Rate FiO2 01/11/17:17 98.1 92 17 171/78 (109) 98 Orders Orders Us Leg Venous Doppler (01/11/17 20:38) Complete Blood Count With Diff (01/11/17 20:38) Comprehensive Metabolic Panel (01/11/17 20:38) Prothrombin Time / Inr (Pt) (01/11/17 20:38) Act Partial Throm Time (Ptt) (01/11/17 20:38) Admit Order (Ed Use Only) (01/11/17 22:54) Enoxaparin Inj (Lovenox Inj) (01/11/17 23:00) Warfarin (Coumadin) (01/12/17 16:00) Admit To Inpatient (01/11/17 ) Vital Signs (Adult) Q4H (01/11/17 22:53) Activity Bed Rest (01/11/17 22:53) Diet Regular Basic (01/12/17 Breakfast) Sodium Chloride 0.9% Flush (Ns Flush) (01/11/17 23:00) Sodium Chloride 0.9% Flush (Ns Flush) (01/12/17 09:00) Ondansetron Inj (Zofran Inj) (01/11/17 23:00) Comprehensive Metabolic Panel (01/12/17 06:00) Complete Blood Count With Diff (01/12/17 06:00) Prothrombin Time / Inr (Pt) (01/12/17 06:00) Acetaminophen (Tylenol) (01/11/17 23:00) Acetamin-Hydrocod 325-5 Mg ([place] 5-325 (01/11/17 23:00) Morphine Inj (Morphine Inj) (01/11/17 23:00) Docusate Sodium-Senna (Azucena-Colace) (01/12/17 09:00) Magnesium Hydroxide Liq (Milk Of Magnesi (01/11/17 23:00) Sennosides (Senokot) (01/11/17 23:00) Bisacodyl Supp (Dulcolax Supp) (01/11/17 23:00) Lactulose Liq (Lactulose Liq) (01/11/17 23:00) Inpatient Certification (01/11/17 ) Labs Laboratory Tests Test 01/11/17 20:57 White Blood Count 7.1 TH/MM3 Red Blood Count 4.07 MIL/MM3 Hemoglobin 11.7 GM/DL Hematocrit 35.5 % Mean Corpuscular Volume 87.2 FL Mean Corpuscular Hemoglobin 28.8 PG Mean Corpuscular Hemoglobin Concent 33.0 % Red Cell Distribution Width 12.5 % Platelet Count 350 TH/MM3 Mean Platelet Volume 8.2 FL Neutrophils (%) (Auto) 46.9 % Lymphocytes (%) (Auto) 42.2 % Monocytes (%) (Auto) 7.9 % Eosinophils (%) (Auto) 2.7 % Basophils (%) (Auto) 0.3 % Neutrophils # (Auto) 3.3 TH/MM3 Lymphocytes # (Auto) 3.0 TH/MM3 Monocytes # (Auto) 0.6 TH/MM3 Eosinophils # (Auto) 0.2 TH/MM3 Basophils # (Auto) 0.0 TH/MM3 CBC Comment DIFF FINAL Differential Comment Prothrombin Time 10.2 SEC Prothromb Time International Ratio 0.9 RATIO Activated Partial Thromboplast Time 26.5 SEC Blood Urea Nitrogen 18 MG/DL Creatinine 0.56 MG/DL Random Glucose 97 MG/DL Total Protein 7.3 GM/DL Albumin 3.3 GM/DL Calcium Level 8.4 MG/DL Alkaline Phosphatase 100 U/L Aspartate Amino Transf (AST/SGOT) 12 U/L Alanine Aminotransferase (ALT/SGPT) 25 U/L Total Bilirubin 0.2 MG/DL Sodium Level 139 MEQ/L Potassium Level 3.5 MEQ/L Chloride Level 103 MEQ/L Carbon Dioxide Level 29.4 MEQ/L Anion Gap 7 MEQ/L Estimat Glomerular Filtration Rate 117 ML/MIN [facility] Medical Decision Making Medical Screen Exam Complete: Yes Emergency Medical Condition: Yes Medical Record Reviewed: Yes Interpretation(s) The ultrasound shows DVT in the right lower extremity. The coagulation profile is normal. The CBC is normal. The complete metabolic profile shows a calcium of 8.4 and albumin 3.3 but is otherwise unremarkable. Differential Diagnosis DVT right leg with failure of Xarelto, electrolyte disorder, pulmonary embolus- unlikely, cellulitis Narrative Course According to the son and the patient the patient's leg is worse than it was on November 29. The pain has increased and the swelling has increased on the entirety of the right leg including the right foot. The patient will be admitted for inpatient treatment of DVT. Diagnosis Primary Impression: Deep vein thrombosis of right lower extremity Additional Impression: Failure of outpatient treatment Rene Rodriguez MD Jan 11, 2017 20:45
[2017-01-11 21:06] LABS: AUTOMATED NEUTROPHIL # 3.3 TH/MM3 (1.8-7.7); BASOPHIL % 0.3 % (0.0-2.0); EOSINOPHIL # 0.2 TH/MM3 (0-0.4); EOSINOPHIL % 2.7 % (0.0-4.0); HEMATOCRIT 35.5 % (35.0-46.0); HEMO FLAGS DIFF FINAL; LYMPH % 42.2 % (9.0-44.0); MEAN CELL VOLUME 87.2 FL (80.0-100.0); MEAN CORPUSCULAR HEMOGLOBIN 28.8 PG (27.0-34.0); MONO % 7.9 % (0.0-8.0); NEUT % 46.9 % (16.0-70.0); PLATELET COUNT 350 TH/MM3 (150-450); RED BLOOD COUNT 4.07 MIL/MM3 (4.00-5.30); RED CELL DISTRIBUTION WIDTH 12.5 % (11.6-17.2); WHITE BLOOD COUNT 7.1 TH/MM3 (4.0-11.0)
[2017-01-11 21:14] LABS: CHLORIDE 103 MEQ/L (98-107); POTASSIUM 3.5 MEQ/L (3.5-5.1); SODIUM (NA) 139 MEQ/L (136-145)
[2017-01-11 21:18] LABS: ANION GAP 7 MEQ/L (5-15); BICARBONATE 29.4 MEQ/L (21.0-32.0); BLOOD UREA NITROGEN 18 MG/DL (7-18)
[2017-01-11 21:20] LABS: APTT (PATIENT) 26.5 SEC (24.3-30.1); INTERNATIONAL NORMALIZED RATIO 0.9 RATIO; PROTHROMBIN TIME - PATIENT 10.2 SEC (9.8-11.6)
[2017-01-11 21:21] LABS: ALT (GPT) 25 U/L (10-53); AST (GOT) 12 U/L (15-37); GLOMERULAR FILTRATION RATE 117 ML/MIN (>89)
[2017-01-11 21:22] LABS: TOTAL BILIRUBIN ADULT 0.2 MG/DL (0.2-1.0)
[2017-01-11 21:23] LABS: ALKALINE PHOSPHATASE 100 U/L (45-117)
--- NOTE | 2017-01-11 22:47 | RADRPT ---
EXAM DATE/TIME: 01/11/2017 22:02 [place] COMPARISON: No previous studies available for comparison. INDICATIONS : Right leg pain. MEDICAL HISTORY : Deep venous thrombosis. Arthritis. SURGICAL HISTORY : Cholecystectomy. Arthroscopy with meniscectomy right knee. ENCOUNTER: Initial ACUITY: 3 months PAIN SCORE: 3/10 LOCATION: Right leg. TECHNIQUE: Venous ultrasound of the leg was performed from the inguinal ligament to the proximal calf. Real-shola e, color Doppler and spectral tracing, compression and augmentation techniques were used. FINDINGS: The study is abnormal demonstrating echogenic thrombus and absent flow from the proximal calf to the mid thigh. No flow by color Doppler. No augmentation can be demonstrated. The proximal thigh vein s are also noncompressible. CONCLUSION: Positive for deep venous thrombosis right lower extremity. Arpit Fuentes MD on January 11, 2017 at 22:43 Board Certified Radiologist. This report was verified electronically.
[2017-01-11] MEDS ORDERED: MORPHINE SULFATE 4 MG/ML INJ IV PUSH PRN (23:00)
[2017-01-11] MEDS ORDERED: SENNOSIDES 8.6 MG TAB PO PRN (23:00)
[2017-01-11] MEDS ORDERED: LACTULOSE SYRUP 20 GM/30 ML CUP PO PRN (23:00)
[2017-01-11] MEDS ORDERED: SODIUM CHLORIDE 0.9% FLUSH 10 ML FLUSH IV FLUSH PRN (23:00)
[2017-01-11] MEDS ORDERED: MAGNESIUM HYDROXIDE SUSP 30 ML CUP PO PRN (23:00)
[2017-01-11] MEDS ORDERED: BISACODYL 10 MG SUPP RECTAL PRN (23:00)
[2017-01-11] MEDS ORDERED: ONDANSETRON HCL 4 MG/2 ML VIAL IVP PRN (23:00)
[2017-01-11] MEDS ORDERED: ACETAMINOPHEN 325 MG TAB PO PRN (23:00)
[2017-01-11] MEDS: ENOXAPARIN SODIUM 80 MG/0.8 ML SYRINGE SQ SCH (23:09)
[2017-01-11 23:34] VITALS: BP 145/83; PULSE 79; RESP 16; TEMP 98; O2SAT 99
[2017-01-11] MEDS: ACETAMINOPHEN/HYDROcodone 325 MG/5 MG TAB PO PRN (23:54)
[2017-01-12] VITALS: BP 160/81; PULSE 73; RESP 18; TEMP 98.2; O2SAT 96
[2017-01-12 04:00] VITALS: BP 114/73; PULSE 70; RESP 18; TEMP 97.9; O2SAT 97
[2017-01-12] MEDS: ACETAMINOPHEN/HYDROcodone 325 MG/5 MG TAB PO PRN ×3 (04:50→21:54)
[2017-01-12 05:26] LABS: AUTOMATED NEUTROPHIL # 2.3 TH/MM3 (1.8-7.7); BASOPHIL % 0.4 % (0.0-2.0); EOSINOPHIL # 0.2 TH/MM3 (0-0.4); EOSINOPHIL % 2.7 % (0.0-4.0); HEMO FLAGS DIFF FINAL; LYMPH % 54.7 % (9.0-44.0); LYMPHOCYTE # 3.4 TH/MM3 (1.0-4.8); MEAN CELL VOLUME 85.8 FL (80.0-100.0); MEAN CORPUSCULAR HEMOGLOBIN 28.4 PG (27.0-34.0); MEAN CORPUSCULAR HGB CONC 33.1 % (32.0-36.0); MONO % 6.1 % (0.0-8.0); NEUT % 36.1 % (16.0-70.0); PLATELET COUNT 313 TH/MM3 (150-450); RED BLOOD COUNT 3.85 MIL/MM3 (4.00-5.30); RED CELL DISTRIBUTION WIDTH 12.3 % (11.6-17.2); WHITE BLOOD COUNT 6.3 TH/MM3 (4.0-11.0)
[2017-01-12 05:57] LABS: CHLORIDE 104 MEQ/L (98-107); POTASSIUM 3.1 MEQ/L (3.5-5.1); SODIUM (NA) 139 MEQ/L (136-145)
[2017-01-12 06:04] LABS: ANION GAP 7 MEQ/L (5-15); BICARBONATE 28.3 MEQ/L (21.0-32.0); BLOOD UREA NITROGEN 14 MG/DL (7-18)
[2017-01-12 06:07] LABS: ALT (GPT) 22 U/L (10-53); AST (GOT) 12 U/L (15-37); GLOMERULAR FILTRATION RATE 130 ML/MIN (>89)
[2017-01-12 06:09] LABS: TOTAL BILIRUBIN ADULT 0.3 MG/DL (0.2-1.0)
[2017-01-12 06:10] LABS: ALKALINE PHOSPHATASE 85 U/L (45-117)
[2017-01-12 06:28] LABS: INTERNATIONAL NORMALIZED RATIO 1.1 RATIO; PROTHROMBIN TIME - PATIENT 12.3 SEC (9.8-11.6)
[2017-01-12 07:51] VITALS: BP 142/87; PULSE 66; RESP 16; TEMP 97; O2SAT 97
[2017-01-12] MEDS ORDERED: POTASSIUM CHLORIDE 10 MEQ CONTROLLED RELEASE TAB PO ONE (08:30)
[2017-01-12] MEDS: DOCUSATE SODIUM 50 MG/SENNA 8.6 MG TAB PO SCH ×2 (08:48→21:52)
[2017-01-12] MEDS: SODIUM CHLORIDE 0.9% FLUSH 10 ML FLUSH IV FLUSH SCH ×2 (08:49→21:00)
--- NOTE | 2017-01-12 10:14 | HHI.HP ---
[facility] Service [facility] Primary Care Physician No Primary Care Physician Admission Diagnosis DVT right lower extremity Diagnoses: Travel History International Travel<30 Days: No Contact w/Intl Traveler <30 Da: No Traveled to Known Affected Are: No History of Present Illness Mrs. Willard is a 46-year-old female. She has a right lower extremity DVT. This was treated with Xarelto approximately 1-2 months ago. Patient says for the past month she has noticed no improvement and actually thinks maybe her lower extremities getting worse. She came into the hospital for evaluation. This represents Xarelto failure. She's been started on therapeutic Lovenox and the plan is to change to Coumadin as a treatment. She denies any past medical history of clotting disorder and says that she has no clotting disorders that run in her family. She is not a smoker and does not drink alcohol. No other complaints today other than swelling and pain at the right lower extremity. No chest pain or shortness of breath. Review of Systems Constitutional: DENIES: Fatigue, Fever, Chills, Change in appetite Endocrine: DENIES: Abnorml menstrual pattern Eyes: DENIES: Blurred vision, Diplopia, Eye inflammation, Eye pain Ears, nose, mouth, throat: DENIES: Tinnitus, Hearing loss, Vertigo, Nasal discharge Respiratory: DENIES: Apneas, Cough, Snoring, Wheezing, Hemoptysis, Sputum production, Shortness of breath Cardiovascular: DENIES: Chest pain, Palpitations, Syncope Gastrointestinal: DENIES: Abdominal pain, Black stools, Bloody stools Genitourinary: DENIES: Abnormal vaginal bleeding, Dysmenorrhea Musculoskeletal: COMPLAINS OF: Joint pain, Muscle aches, Stiffness, Joint Swelling Integumentary: DENIES: Abnormal pigmentation, Pruritus, Rash Hematologic/lymphatic: DENIES: Bruising, Lymphadenopathy Immunologic/allergic: DENIES: Eczema, Urticaria Neurologic: COMPLAINS OF: Abnormal gait, DENIES: Headache, Localized weakness, Paresthesias, Tremor Psychiatric: DENIES: Anxiety, Confusion, Hallucinations Past Family Social History Past Medical History Right knee arthritis Right knee meniscal tear Past Surgical History Cholecystectomy Reported Medications Reported Meds & Active Scripts Active Xarelto (Rivaroxaban) 20 Mg Tab 20 Mg PO DAILY Allergies: Coded Allergies: No Known Allergies (Verified , 01/11/17) Active Ordered Medications Administered Medications Medications (Trade) Dose Ordered Sig/Lala Route PRN Reason Start Time Stop Time Status Last Admin Dose Admin Enoxaparin Sodium (Lovenox Inj) 80 mg Q12H SQ 01/11/17 23:00 01/11/17 23:09 Sodium Chloride (NS Flush) 2 ml BID IV FLUSH 01/12/17 09:00 01/12/17 08:49 Acetaminophen/ Hydrocodone Bitart ([place] 5-325 Mg) 1 tab Q4H PRN PO PAIN SCALE 3 TO 5 01/11/17 23:00 01/12/17 04:50 Senna/Docusate Sodium (Azucena-Colace) 1 tab BID PO 01/12/17 09:00 01/12/17 08:48 Family History No history of clotting disorder No known positive past medical history of mother and father Social History No nicotine abuse No drug abuse Alcohol abuse Physical Exam Vital Signs Vital Signs Date Time Temp Pulse Resp B/P (MAP) Pulse Ox O2 Delivery O2 Flow Rate FiO2 01/12/17 07:51 97.0 66 16 142/87 (105) 97 01/12/17 04:00 97.9 70 18 114/73 (87) 97 01/12/17 00:00 98.2 73 18 160/81 (107) 96 01/11/17 23:39 01/11/17 23:34 98.0 79 16 145/83 (103) 99 01/11/17 20:17 98.1 92 17 171/78 (109) 98 Physical Exam GENERAL: NAD, A&Ox3 HEAD: Normocephalic. NECK: Supple, trachea midline. No lymphadenopathy. EYES: No scleral icterus. No injection or drainage. CARDIOVASCULAR: Regular rate and rhythm without murmurs, gallops, or rubs. RESPIRATORY: Breath sounds equal bilaterally. No accessory muscle use. GASTROINTESTINAL: Abdomen soft, non-tender, nondistended. MUSCULOSKELETAL: No cyanosis. Right lower extremity edema and tenderness compared to left. SKIN: Warm and dry. NEURO: No focal neurological deficitis. Laboratory Laboratory Tests Test 01/11/17 20:57 01/12/17 04:35 White Blood Count 7.1 6.3 Red Blood Count 4.07 3.85 Hemoglobin 11.7 10.9 Hematocrit 35.5 33.0 Mean Corpuscular Volume 87.2 85.8 Mean Corpuscular Hemoglobin 28.8 28.4 Mean Corpuscular Hemoglobin Concent 33.0 33.1 Red Cell Distribution Width 12.5 12.3 Platelet Count 350 313 Mean Platelet Volume 8.2 8.4 Neutrophils (%) (Auto) 46.9 36.1 Lymphocytes (%) (Auto) 42.2 54.7 Monocytes (%) (Auto) 7.9 6.1 Eosinophils (%) (Auto) 2.7 2.7 Basophils (%) (Auto) 0.3 0.4 Neutrophils # (Auto) 3.3 2.3 Lymphocytes # (Auto) 3.0 3.4 Monocytes # (Auto) 0.6 0.4 Eosinophils # (Auto) 0.2 0.2 Basophils # (Auto) 0.0 0.0 CBC Comment DIFF FINAL DIFF FINAL Differential Comment Prothrombin Time 10.2 12.3 Prothromb Time International Ratio 0.9 1.1 Activated Partial Thromboplast Time 26.5 Blood Urea Nitrogen 18 14 Creatinine 0.56 0.51 Random Glucose 97 92 Total Protein 7.3 6.2 Albumin 3.3 2.8 Calcium Level 8.4 8.1 Alkaline Phosphatase 100 85 Aspartate Amino Transf (AST/SGOT) 12 12 Alanine Aminotransferase (ALT/SGPT) 25 22 Total Bilirubin 0.2 0.3 Sodium Level 139 139 Potassium Level 3.5 3.1 Chloride Level 103 104 Carbon Dioxide Level 29.4 28.3 Anion Gap 7 7 Estimat Glomerular Filtration Rate 117 130 Result Diagram: 01/12/175 01/12/17434 Caprini VTE Risk Assessment Caprini VTE Risk Assessment: Mod/High Risk (score >= 2) Caprini Risk Assessment Model Point Value = 1 Point Value = 2 Point Value = 3 Point Value = 5 Age 41-60 Minor surgery BMI > 25 kg/m2 Swollen legs Varicose veins or History of unexplained or recurrent spontaneous Oral contraceptives or hormone replacement Sepsis (< 1 month) Serious lung disease, including pneumonia (< 1 month) Abnormal pulmonary function Acute myocardial infarction Congestive heart failure (< 1 month) History of inflammatory bowel disease Medical patient at bed rest Age 61-74 Arthroscopic surgery Major open surgery (> 45 min) Laparoscopic surgery (> 45 min) Malignancy Confined to bed (> 72 hours) Immobilizing plaster cast Central venous access Age >= 75 History of VTE Family history of VTE Factor V Leiden Prothrombin [id number] Lupus anticoagulant Anticardiolipin antibodies Elevated serum homocysteine Heparin-induced thrombocytopenia Other congenital or acquired thrombophilia Stroke (< 1 month) Elective arthroplasty Hip, pelvis, or leg fracture Acute spinal cord injury (< 1 month) Prophylaxis Regimen Total Risk Factor Score Risk Level Prophylaxis Regimen 0-1 Low Early ambulation 2 Moderate Order ONE of the following: *Sequential Compression Device (SCD) *Heparin 5000 units SQ BID 3-4 Higher Order ONE of the following medications: *Heparin 5000 units SQ TID *Enoxaparin/Lovenox 40 mg SQ daily (WT < 150 kg, CrCl > 30 mL/min) *Enoxaparin/Lovenox 30 mg SQ daily (WT < 150 kg, CrCl > 10-29 mL/min) *Enoxaparin/Lovenox 30 mg SQ BID (WT < 150 kg, CrCl > 30 mL/min) AND/OR *Sequential Compression Device (SCD) 5 or more Highest Order ONE of the following medications: *Heparin 5000 units SQ TID (Preferred with Epidurals) *Enoxaparin/Lovenox 40 mg SQ daily (WT < 150 kg, CrCl > 30 mL/min) *Enoxaparin/Lovenox 30 mg SQ daily (WT < 150 kg, CrCl > 10-29 mL/min) *Enoxaparin/Lovenox 30 mg SQ BID (WT < 150 kg, CrCl > 30 mL/min) AND *Sequential Compression Device (SCD) Assessment and Plan Problem List: (1) Failure of outpatient treatment ICD Code: Z78.9 - Other specified health status Status: Acute (2) Deep vein thrombosis of right lower extremity ICD Code: I82.401 - Acute embolism and thrombosis of unspecified deep veins of right lower extremity Status: Acute Assessment and Plan Assessment and plan 46-year-old female admitted secondary to right lower extremity DVT with outpatient treatment failure. Right lower extremity DVT Outpatient treatment failure Patient failed Xarelto Continue Lovenox at therapeutic dosing Continue Coumadin Follow INR Hematology consulted As needed pain treatments Follow clinically for improvements DVT prophylaxis Lovenox Physician Certification 2 Midnight Certification Type: Admission for Inpatient Services Order for Inpatient Services The services are ordered in accordance with Medicare regulations or non- Medicare payer requirements, as applicable. In the case of services not specified as inpatient-only, they are appropriately provided as inpatient services in accordance with the 2-midnight benchmark. Estimated LOS (days): 3 days is the estimated time the patient will need to remain in the hospital, assuming treatment plan goals are met and no additional complications. Post-Hospital Plan: Home Caleb Jacob MD Jan 12, 2017 10:13
[2017-01-12] MEDS: ENOXAPARIN SODIUM 80 MG/0.8 ML SYRINGE SQ SCH ×2 (10:40→21:53)
[2017-01-12 11:34] VITALS: BP 141/83; PULSE 68; RESP 20; TEMP 97; O2SAT 97
[2017-01-12 15:33] VITALS: BP 111/60; PULSE 63; RESP 20; TEMP 97.4; O2SAT 99
[2017-01-12] MEDS: WARFARIN SOD 5 MG TAB PO SCH (16:07)
[2017-01-12 20:00] VITALS: BP 180/98; PULSE 78; RESP 20; TEMP 96.4; O2SAT 97
[2017-01-12] MEDS ORDERED: ENALAPRILAT 1.25 MG/ML VIAL IV PUSH ONE (20:45)
[2017-01-13] VITALS: BP 123/82; PULSE 70; RESP 20; TEMP 98.4; O2SAT 95
[2017-01-13 05:41] LABS: HEMATOCRIT 34.9 % (35.0-46.0); MEAN CELL VOLUME 87.3 FL (80.0-100.0); MEAN CORPUSCULAR HEMOGLOBIN 28.8 PG (27.0-34.0); PLATELET COUNT 309 TH/MM3 (150-450); RED CELL DISTRIBUTION WIDTH 12.6 % (11.6-17.2); REVIEW FLAG FINAL; WHITE BLOOD COUNT 5.9 TH/MM3 (4.0-11.0)
[2017-01-13 05:45] LABS: POTASSIUM 3.5 MEQ/L (3.5-5.1)
[2017-01-13 05:48] LABS: BICARBONATE 29.4 MEQ/L (21.0-32.0)
[2017-01-13 05:57] LABS: PROTHROMBIN TIME - PATIENT 11.1 SEC (9.8-11.6)
--- NOTE | 2017-01-13 06:21 | MB ---
cc: GINA SUNSHINE DATE OF CONSULTATION 01/12/2017 DATE OF 1970. REASON FOR CONSULTATION Persistent right lower extremity deep venous thrombosis. CURRENT TREATMENT The patient is on Lovenox with bridging to warfarin. CHIEF COMPLAINT Ms. Tolbert reports having persistent right leg swelling and discoloration as well as pain. She came into the ER for further workup and evaluation. The pain, swelling and discoloration persisted despite her having been on anticoagulation with Xarelto 20 mg once daily since mid-November of 2016. HISTORY OF PRESENT ILLNESS Ms. Willard is a 46-year-old female who underwent right knee meniscal tear surgery in mid-October of 2016. She reports she injured her knee after she fell at work. She was referred by her worker's compensation agency to [facility] from [place] which is where she lives. The patient developed pain and swelling and tenderness of her right leg in mid-November. She was evaluated at this hospital and was found to have proximal and distal deep venous thrombosis. She was recommended anticoagulation with Xarelto. She reports being on Xarelto religiously every day, she took 20 mg with each evening meal. She reports having noticed heavy menstrual cycles while on Xarelto but she reports the pain and swelling in her right leg did not improve. She came into the hospital for further workup and evaluation yesterday. Repeat imaging studies including a right leg ultrasound Doppler revealed persistent deep venous thrombosis involving the proximal calf and going all the way to the mid-thigh. She has since then been initiated on Lovenox at a dose of 80 mg subcu twice daily and is being transition to warfarin. PAST MEDICAL HISTORY 1. Obesity. 2. Right meniscal tear. 3. Persistent right lower extremity deep venous thrombosis. PAST SURGICAL HISTORY 1. Cholecystectomy. 2. Right meniscal tear surgery. FAMILY HISTORY Father is living. Mom is ; she of complications of tuberculosis. She has no oncologic family history. SOCIAL HISTORY Lives at home with her family, she denies alcohol or tobacco abuse. GYNECOLOGIC HISTORY She has six children aged between 24 and 6 years. ALLERGIES No known drug allergies. CURRENT INPATIENT MEDICATIONS 1. Lovenox 80 mg subcu twice daily. 2. Warfarin dosing at 5 mg once daily at 4 p.m. 3. Hydrocodone/acetaminophen 5/325 mg tablets every 4 hours as needed for pain. 4. Dulcolax 10 mg per rectum as needed for severe constipation. 5. Lactulose 30 mL p.o. daily as needed for constipation. 6. Zofran 4 mg IV q.6 hours as needed for nausea and vomiting. REVIEW OF SYSTEMS A 13-point review of systems are obtained. The following are the pertinent positives and negatives: CONSTITUTIONAL: She denies fatigue, weakness, fevers, chills, night sweats or weight loss. HEENT: Denies headaches, blurry vision, difficulty swallowing or sore throat. RESPIRATORY: Denies difficulty breathing, cough, hemoptysis. She denies exertional dyspnea. CARDIOVASCULAR: Denies angina-like chest pain, PND, orthopnea. She does report right lower extremity edema. GI: Denies nausea, vomiting, diarrhea, hematochezia, melena. : Denies dysuria, hematuria, urinary incontinence. GYNECOLOGIC: Reports heavy menstrual cycles while on blood thinners. [employer] ST[employer] BAGGER: Denies any focal sensory of motor deficits. PHYSICAL EXAMINATION VITAL SIGNS: Temperature 97.4 degrees Fahrenheit, heart rate 63 beats per minute, respiratory rate 20, blood pressure 111 x 60, O2 sat is 99% on room air. GENERAL PHYSICAL APPEARANCE: Ms. Willard is a middle-aged female, she is short and heavy-set, appears to be in no acute distress and has a pleasant disposition. HEENT: Head atraumatic, normocephalic. Conjunctivae a are not pale. Sclerae are anicteric. EOMI, PERRLA. Oral exam - no pharyngeal erythema. NECK EXAM: No palpable cervical or supraclavicular lymphadenopathy. RESPIRATORY EXAM: Good air movement bilaterally. No added breath sounds. CARDIOVASCULAR EXAM: Regular rate and rhythm, S1-S2. No obvious murmurs, rubs or gallops. ABDOMINAL EXAM: Protuberant belly, soft and nontender, nondistended. No palpable organ enlargement. LOWER EXTREMITIES: Left lower extremity without pretibial edema. No calf tenderness. RIGHT LOWER EXTREMITY: Pretibial edema and calf tenderness noted, no discoloration. GR[employer] ST[employer] BAGGER: No focal sensory or motor deficits. LABORATORY FINDINGS Blood work dated 11/12/2016: WBC count 6.3, hemoglobin 10.9 gm/dl, hematocrit 33%, platelet count is 313, absolute neutrophil count is 2.3. Chemistries: Sodium 139, potassium 3.1, chloride 104, bicarb 28.3, BUN 14, creatinine 0.51, random glucose of 92, calcium is 8.1, total bilirubin 0.3, AST is 12, ALT 22, alkaline phosphatase is 85, albumin is 2.8. Coagulation studies: PT is 12.3, INR is 1.1. IMAGING STUDIES Ultrasound Doppler studies of the right lower extremity indicates abnormal findings with demonstration of echogenic thrombus and absent flow from the proximal calf to the mid-thigh. No Doppler flow by color Doppler. Positive for deep venous thrombosis in the right lower extremity. ASSESSMENT Ms. Willard is a 46-year-old female who underwent arthroscopic surgery in mid-October of 2016 for management of a torn meniscus in the right knee. One month after surgery she developed occlusive thrombosis involving the proximal and distal veins of the right leg. She was initiated on anticoagulation with Xarelto. Four weeks into treatment with Xarelto she had persistent pain, swelling and discoloration of her right leg. She presented to the emergency department for further evaluation on 01/11/2017 and was found to have persistent clot burden. The patient has since then been transitioned from Xarelto to Lovenox with bridging to warfarin. The oncology/hematology service has been asked to see her to assist with further recommendations and management. RECOMMENDATIONS Persistent occlusive right lower extremity deep venous thrombosis: Continue anticoagulation with therapeutic dose Lovenox which will be dosed at 1 mg/kg twice daily. Continue bridging with warfarin, a reasonable dose would be 5 mg once daily. I would advise checking PT/INRs within 2-3 days of starting warfarin. The target INR goal would be between 2 and 3. An appropriate length of anticoagulation would be 3-6 months. Should her symptoms of venous insufficiency and edema not improved, repeat ultrasound Dopplers would be warranted sooner. At this point I would advise the patient undergo every 1-2 weekly INR checks. She chooses to have her primary care physician, Dr. Olga Saini with [facility] in [place], [place], manage her anticoagulation. I would advise the patient to continue anticoagulation and to repeat ultrasound Dopplers of the lower extremity in 4-6 months and should her deep venous thrombosis have resolved, I would discontinue anticoagulation at about 6 months from initiation. Another possible treatment option may be having this patient evaluated for thrombolytic therapy, i.e. mechanical thrombolysis with Interventional Radiology. However, because it has been approximately 6 weeks since her initial deep venous thrombosis was diagnosed, I do not think thrombolytic therapy at this point would be effective given the chronicity of this thrombosis. Typically thrombolytic therapy is most appropriate in a very fresh/immature clot. DISPOSITION Ms. Willard may be discharged home to [place] with a week's supply of therapeutic dose Lovenox and warfarin. She will follow up with her primary care physician for full bridging to warfarin. I would be happy to help in the future should there be any questions or concerns. My office phone number is . MD CHAYITO Keith/LIO /7:05 PM /6:02 AM MTDD
[2017-01-13 08:00] VITALS: BP 112/64; PULSE 62; RESP 20; TEMP 96.7; O2SAT 97
[2017-01-13] MEDS: SODIUM CHLORIDE 0.9% FLUSH 10 ML FLUSH IV FLUSH SCH ×2 (08:38→21:15)
[2017-01-13] MEDS: DOCUSATE SODIUM 50 MG/SENNA 8.6 MG TAB PO SCH ×2 (08:38→21:15)
[2017-01-13] MEDS ORDERED: PNEUMOCOCCAL POLYVALENT INJ 25 MCG/0.5 ML SYR IM ONE (10:00)
[2017-01-13] MEDS ORDERED: INFLUENZA VIRUS VACCINE (QUADRIVALENT) 0.5 ML SYR IM ONE (10:00)
[2017-01-13] MEDS: ENOXAPARIN SODIUM 80 MG/0.8 ML SYRINGE SQ SCH ×2 (10:52→21:17)
--- NOTE | 2017-01-13 11:20 | HHI.PR ---
Subjective Remarks No chest pain, no shortness of breath. There is some improvement in her right lower extremity with treatment thus far. She has Medicaid sure if cost and will not be able to afford co-pays to discharge with home health, lab checks, and Lovenox to bridge at home. Bridging will have to occur here. Objective Vital Signs Date Time Temp Pulse Resp B/P (MAP) Pulse Ox O2 Delivery O2 Flow Rate FiO2 01/13/17 08:00 96.7 62 20 112/64 (80) 97 01/13/17 00:00 98.4 70 20 123/82 (96) 95 01/12/17 20:00 96.4 78 20 180/98 (125) 97 01/12/17 15:33 97.4 63 20 111/60 (77) 99 01/12/17 11:34 97.0 68 20 141/83 (102) 97 I/O 01/12/17 01/12/17 01/12/17 01/13/17 01/13/17 01/13/17 07:00 15:00 23:00 07:00 15:00 23:00 Intake Total 900 ml 0 ml Balance 900 ml 0 ml Intake Oral 900 ml 0 ml # Voids 2 3 2 # Bowel Movements 0 Result Diagram: 01/13/1743201/13/17 043 Objective Remarks GENERAL: NAD, A&Ox3 HEAD: Normocephalic. NECK: Supple, trachea midline. No lymphadenopathy. EYES: No scleral icterus. No injection or drainage. CARDIOVASCULAR: Regular rate and rhythm without murmurs, gallops, or rubs. RESPIRATORY: Breath sounds equal bilaterally. No accessory muscle use. GASTROINTESTINAL: Abdomen soft, non-tender, nondistended. MUSCULOSKELETAL: No cyanosis. Edema at right lower extremity. SKIN: Warm and dry. NEURO: No focal neurological deficitis. A/P Problem List: (1) Deep vein thrombosis of right lower extremity ICD Code: I82.401 - Acute embolism and thrombosis of unspecified deep veins of right lower extremity Status: Acute (2) Failure of outpatient treatment ICD Code: Z78.9 - Other specified health status Status: Acute Assessment and Plan Assessment and plan 46-year-old female admitted secondary to right lower extremity DVT with outpatient treatment failure. INR is 1.0 today. Continue Coumadin and monitor INR. Continue Lovenox bridging. Right lower extremity DVT Outpatient treatment failure Slight improvement clinically Patient failed Xarelto Continue Lovenox at therapeutic dosing Continue Coumadin Follow INR Hematology consulted As needed pain treatments Follow clinically for improvements Monitor for shortness of breath or chest pain DVT prophylaxis Caleb Gutierrez MD Jan 13, 2017 11:20
[2017-01-13 12:00] VITALS: BP 125/85; PULSE 64; RESP 20; TEMP 97.2; O2SAT 98
[2017-01-13] MEDS ORDERED: ARTIFICIAL TEARS OPTH SOLN 15 ML BTL LEFT EYE PRN (12:00)
[2017-01-13 15:30] VITALS: BP 140/80; PULSE 80; RESP 20; TEMP 98.3; O2SAT 95
[2017-01-13] MEDS: WARFARIN SOD 5 MG TAB PO SCH (15:33)
--- NOTE | 2017-01-13 19:10 | PD.ONC.PN ---
Subjective Subjective Remarks "I have alot of pain." Discussed swelling R leg due to both DVt and recent arthroscopic surgery. R knee still swollen. Objective Data Date Time Temp Pulse Resp B/P (MAP) Pulse Ox O2 Delivery O2 Flow Rate FiO2 01/13/17 15:30 98.3 80 20 140/80 (100) 95 01/13/17 12:00 97.2 64 20 125/85 (98) 98 01/13/17 08:00 96.7 62 20 112/64 (80) 97 01/13/17 00:00 98.4 70 20 123/82 (96) 95 01/12/17 20:00 96.4 78 20 180/98 (125) 97 01/13/17 01/13/17 01/13/17 07:00 15:00 23:00 Intake Total 0 ml 660 ml Balance 0 ml 660 ml Result Diagram: 01/13/17 0433 01/13/17432 Laboratory Results Laboratory Tests Test 01/13/17 04:33 White Blood Count 5.9 TH/MM3 Red Blood Count 4.00 MIL/MM3 Hemoglobin 11.5 GM/DL Hematocrit 34.9 % Mean Corpuscular Volume 87.3 FL Mean Corpuscular Hemoglobin 28.8 PG Mean Corpuscular Hemoglobin Concent 33.0 % Red Cell Distribution Width 12.6 % Platelet Count 309 TH/MM3 Mean Platelet Volume 8.5 FL Prothrombin Time 11.1 SEC Prothromb Time International Ratio 1.0 RATIO Blood Urea Nitrogen 14 MG/DL Creatinine 0.48 MG/DL Random Glucose 94 MG/DL Calcium Level 8.8 MG/DL Sodium Level 139 MEQ/L Potassium Level 3.5 MEQ/L Chloride Level 102 MEQ/L Carbon Dioxide Level 29.4 MEQ/L Anion Gap 8 MEQ/L Estimat Glomerular Filtration Rate 140 ML/MIN Administered Medications Medications (Trade) Dose Ordered Sig/Lala Route PRN Reason Start Time Stop Time Status Last Admin Dose Admin Enoxaparin Sodium (Lovenox Inj) 80 mg Q12H SQ 01/11/17 23:00 01/13/17 10:52 Warfarin Sodium (Coumadin) 5 mg DAILY@1600 PO 01/12/17 16:00 01/13/17 15:33 Sodium Chloride (NS Flush) 2 ml BID IV FLUSH 01/12/17 09:00 01/13/17 08:38 Acetaminophen/ Hydrocodone Bitart ([place] 5-325 Mg) 1 tab Q4H PRN PO PAIN SCALE 3 TO 5 01/11/17 23:00 01/12/17 21:54 Senna/Docusate Sodium (Azucena-Colace) 1 tab BID PO 01/12/17 09:00 01/13/17 08:38 Objective Remarks GENERAL: Well-nourished, well-developed patient. SKIN: Warm and dry. HEAD: Normocephalic. EYES: No scleral icterus. No injection or drainage. NECK: Supple, trachea midline. No JVD or lymphadenopathy. LYMPHATIC: No adenopathy. CARDIOVASCULAR: Regular rate and rhythm without murmurs. RESPIRATORY: Breath sounds equal bilaterally. No accessory muscle use. GASTROINTESTINAL: Abdomen soft, non-tender, nondistended. EXTREMITIES: No cyanosis, or edema. MUSCULOSKELETAL: R knee with effusion and swelling. R leg trace edema with mild hyperpigmented venous insufficiency changes. R leg> L. NEUROLOGICAL: No obvious focal deficit. Awake, alert, and oriented x3. PSYCHIATRIC: Appropriate mood and affect; insight and judgment normal. Assessment/Plan Problem List: (1) Deep vein thrombosis of right lower extremity ICD Codes: I82.401 - Acute embolism and thrombosis of unspecified deep veins of right lower extremity Status: Acute Plan: R LE DVT on Xarelto. Interrupted anticoagulant therapy for arthroscopic R knee surgery. Post surgery pt concern about persistent swelling and pain. Discussed limitation of US. Uncertain if true progression on Xarelto or failure. We will need to look to see if she has LAC or DUANE positivity. Suspect that clot is unchanged that swelling exacerbated post phlebitic syndrome from surgery. Discussed risks and benefits of Coumadin, agreeable to continue current course. Encourage to fu w/ PCP to continue managing INR, goal 2-3. No signs of bleeding. Assessment 46 y/o with RLE DVT, recent R knee arthroscopic surgery concern for failure on Xarelto. Plan 1. Cont LMWH bridge to therapeutic INR 2-3 2. Ok to DC home from heme/onc standpoint to continue anticoagulation with follow with PCP closer to home. 3. Check DUANE panel Problem Qualifiers (1) Deep vein thrombosis of right lower extremity: Susan Ordaz MD Jan 13, 2017 19:10
[2017-01-13 20:00] VITALS: BP 180/106; PULSE 75; RESP 20; TEMP 98.4; O2SAT 95
[2017-01-13] MEDS ORDERED: ENALAPRILAT 2.5 MG/2 ML VIAL IV PUSH PRN (20:45)
[2017-01-13] MEDS: ACETAMINOPHEN/HYDROcodone 325 MG/5 MG TAB PO PRN (21:16)
[2017-01-14] VITALS: BP 142/78; PULSE 62; RESP 20; TEMP 98; O2SAT 96
[2017-01-14 05:55] LABS: PROTHROMBIN TIME - PATIENT 11.4 SEC (9.8-11.6)
[2017-01-14 08:00] VITALS: BP 133/85; PULSE 83; RESP 18; TEMP 97.9; O2SAT 95
[2017-01-14] MEDS: DOCUSATE SODIUM 50 MG/SENNA 8.6 MG TAB PO SCH (09:00)
[2017-01-14] MEDS: SODIUM CHLORIDE 0.9% FLUSH 10 ML FLUSH IV FLUSH SCH (09:00)
[2017-01-14] MEDS: ENOXAPARIN SODIUM 80 MG/0.8 ML SYRINGE SQ SCH (10:24)
[2017-01-14 12:00] VITALS: BP 141/85; PULSE 73; RESP 20; TEMP 97.6; O2SAT 92
--- NOTE | 2017-01-14 12:01 | HHI.PR ---
Subjective Remarks Patient seen in follow-up for right lower showing a DVT. Apparently spelled xarelto. Now on Lovenox with Coumadin. INR still 1.0. Patient planning of discomfort in the right leg but has been ambulatory with her crutches Objective Vitals Vital Signs Date Time Temp Pulse Resp B/P (MAP) Pulse Ox O2 Delivery O2 Flow Rate FiO2 01/14/17 08:00 97.9 83 18 133/85 (101) 95 01/14/17 00:00 98.0 62 20 142/78 (99) 96 01/13/17 20:00 98.4 75 20 180/106 (130) 95 01/13/17 15:30 98.3 80 20 140/80 (100) 95 01/13/17 12:00 97.2 64 20 125/85 (98) 98 I/O 01/13/17 01/13/17 01/13/17 01/14/17 01/14/17 01/14/17 07:00 15:00 23:00 07:00 15:00 23:00 Intake Total 0 ml 660 ml 60 ml Balance 0 ml 660 ml 60 ml Intake Oral 0 ml 660 ml 60 ml # Voids 2 3 3 # Bowel Movements 0 1 3 Result Diagram: 01/13/173 01/13/17 0433 Objective Remarks GENERAL: This is a well-nourished, well-developed patient, in no apparent distress. CARDIOVASCULAR: Regular rate and rhythm without murmurs, gallops, or rubs. RESPIRATORY: Clear to auscultation. Breath sounds equal bilaterally. No wheezes , rales, or rhonchi. GASTROINTESTINAL: Abdomen soft, non-tender, nondistended. Normal active bowel sounds MUSCULOSKELETAL: Right lower extremity swelling but other 3 Extremities without clubbing, cyanosis, or edema. NEURO: Alert & Oriented x4 to person, place, time, situation. Moves all ext x4 A/P Problem List: (1) Deep vein thrombosis of right lower extremity ICD Code: I82.401 - Acute embolism and thrombosis of unspecified deep veins of right lower extremity Status: Acute Plan: patient did not tolerate xarelto. Patient with perioperative DVT and phlebitis. Continue Coumadin and Lovenox We'll need repeat ultrasound in 4-6 months per hematology to reassess Discharge Planning Patient adherence to Lovenox, daily INR is explained number for primary care provider obtained and patient will follow-up with her primary care provider Problem Qualifiers (1) Deep vein thrombosis of right lower extremity: Candida Whatley MD Jan 14, 2017 12:01
--- NOTE | 2017-01-14 12:02 | HHI.DCPOC ---
Discharge Care Plan Diagnosis: (1) Deep vein thrombosis of right lower extremity Goals to Promote Your Health * To prevent worsening of your condition and complications * To maintain your health at the optimal level Directions to Meet Your Goals Take your medications as prescribed Follow your dietary instruction Follow activity as directed Keep your appointments as scheduled Take your immunizations and boosters as scheduled If your symptoms worsen call your PCP, if no PCP go to Urgent Care Center or Emergency Room Smoking is Dangerous to Your Health. Avoid second hand smoke Call the 24-hour hour crisis hotline for domestic abuse at Candida Whatley MD Jan 14, 2017 12:02
[2017-01-14] MEDS ORDERED: COUM7.5T PO (12:07)
[2017-01-14] MEDS ORDERED: ENOX80P SQ (12:07)
--- NOTE | 2017-01-14 12:08 | HHI.DS ---
Discharge Summary Admission Date Jan 11, 2017 at 22:56 Discharge Date: Jan 14, 2017 Admitting Diagnosis DVT right lower extremity (1) Deep vein thrombosis of right lower extremity ICD Code: I82.401 - Acute embolism and thrombosis of unspecified deep veins of right lower extremity Status: Acute Procedures none Brief History - From Admission Mrs. Willard is a 46-year-old female. She has a right lower extremity DVT. This was treated with Xarelto approximately 1-2 months ago. Patient says for the past month she has noticed no improvement and actually thinks maybe her lower extremities getting worse. She came into the hospital for evaluation. She's been started on therapeutic Lovenox and the plan is to change to Coumadin as a treatment. She denies any past medical history of clotting disorder and says that she has no clotting disorders that run in her family. She is not a smoker and does not drink alcohol. No other complaints today other than swelling and pain at the right lower extremity. No chest pain or shortness of breath. CBC/BMP: 01/13/17 0433 01/13/17 0433 Significant Findings Laboratory Tests Test 01/11/17 20:57 01/12/17 04:35 01/13/17 04:33 01/14/17 04:37 Albumin 3.3 GM/DL (3.4-5.0) 2.8 GM/DL (3.4-5.0) Calcium Level 8.4 MG/DL (8.5-10.1) 8.1 MG/DL (8.5-10.1) Aspartate Amino Transf (AST/SGOT) 12 U/L (15-37) 12 U/L (15-37) Red Blood Count 3.85 MIL/MM3 (4.00-5.30) Hemoglobin 10.9 GM/DL (11.6-15.3) 11.5 GM/DL (11.6-15.3) Hematocrit 33.0 % (35.0-46.0) 34.9 % (35.0-46.0) Lymphocytes (%) (Auto) 54.7 % (9.0-44.0) Prothrombin Time 12.3 SEC (9.8-11.6) Total Protein 6.2 GM/DL (6.4-8.2) Potassium Level 3.1 MEQ/L (3.5-5.1) Creatinine 0.48 MG/DL (0.50-1.00) Imaging Last Impressions Lower Extremity Ultrasound 01/11/172037 Signed Impressions: Service Date/Time: Wednesday, January 11, 2017 22:02 - CONCLUSION: Positive for deep venous thrombosis right lower extremity. Arpit Fuentes MD PE at Discharge GENERAL: This is a well-nourished, well-developed patient, in no apparent distress. CARDIOVASCULAR: Regular rate and rhythm without murmurs, gallops, or rubs. RESPIRATORY: Clear to auscultation. Breath sounds equal bilaterally. No wheezes , rales, or rhonchi. GASTROINTESTINAL: Abdomen soft, non-tender, nondistended. Normal active bowel sounds MUSCULOSKELETAL: Right lower extremity swelling but other 3 Extremities without clubbing, cyanosis, or edema. NEURO: Alert & Oriented x4 to person, place, time, situation. Moves all ext x4 Pt update on day of discharge Please see daily progress note Hospital Course 46-year-old female with no significant chronic medical illnesses who presented to the hospital at the request of her primary medical doctor because of right lower extremity DVT. Patient did undergo right knee surgery by Dr. Henderson on 10/24/16 in which he performed an arthroscopic partial synovectomy, total medial meniscectomy and chondroplasty patellofemoral joint. Patient was doing well until she started developing swelling in her right lower extremity with pain. Patient continued with some pain and was found have a DVT and previous admission and same DVT at this time. His thought she had a failure of xarelto and was started on Coumadin and warfarin. She was seen by hematology recommended for Lovenox and Coumadin for bridging with goal of INR 2.3. Patient instructed to continue Coumadin and follow-up with her primary care physician Pt Condition on Discharge: Good Discharge Disposition: Discharge Home Discharge Time: > 30 minutes Discharge Instructions DIET: Follow Instructions for: Coumadin (Warfarin) Diet Activities you can perform: Regular-No Restrictions Follow up Referrals: PCP Follow-up with lula New Orders: PT/INR - Daily New Medications: Enoxaparin Inj (Lovenox Inj) 80 mg/0.8 ML Syr 80 MG SQ Q12H for clot, #10 INJECTION Warfarin (Coumadin) 7.5 Mg Tab 7.5 MG PO DAILY@16 for clot, #31 TAB Discontinued Medications: Rivaroxaban (Xarelto) 20 Mg Tab 20 MG PO DAILY for Blood Clot Prevention, #30 TAB 0 Refills Candida Whatley MD Jan 14, 2017 12:08
[2017-01-14] MEDS: ACETAMINOPHEN/HYDROcodone 325 MG/5 MG TAB PO PRN (15:07)
[2017-01-14] MEDS ORDERED: WARFARIN SOD 7.5 MG TAB PO SCH (16:00)
[2017-01-14 16:07] VITALS: RESP 20
[2017-01-14] MEDS ORDERED: ENOXAPARIN SODIUM 80 MG/0.8 ML SYRINGE SQ ONE (18:50)
[2017-01-16 19:53] LABS: PHOS SERINE AB IGA LESS THAN 20 U/mL (<20); PHOS SERINE AB IGG LESS THAN 10 U/mL (<10); PHOS SERINE AB IGM LESS THAN 25 U/mL (<25)
[2017-01-17 03:51] LABS: BETA2 GLYCOPROTEIN I AB IGA LESS THAN 9.0 SAU (< OR = 20)
== END 2017-01-14 17:13 | disposition home or self-care (01) | DRG 301 ==
LOC: PHED 20:04 → PHEDA 22:56 → PH3A 23:44
PROVIDERS: ADMIT Hospitalist; ATTEND Hospitalist
DX: I82.401 Acute embolism and thrombosis of unspecified deep veins of right lower extremity (principal); F10.10 Alcohol abuse, uncomplicated; M17.11 Unilateral primary osteoarthritis, right knee; Z79.01 Long term (current) use of anticoagulants; N92.0 Excessive and frequent menstruation with regular cycle; S83.206A Unspecified tear of unspecified meniscus, current injury, right knee, initial encounter; W19.XXXA Unspecified fall, initial encounter; Y92.9 Unspecified place or not applicable
CPT/HCPCS: 80048; 80053; 85025; 85027; 85610; 85730; 86146; 86147; 86148; 90471; 90686; 90732; 93971; G0008; G0009; J1650; Q2038